=== PATIENT | female | born 1980 | race Caucasian/White ===

== ENCOUNTER → 2016-05-18 | Day surgery (SDC) | payer MEDICARE, MEDICAID ==
[~2016-05-18] MED LIST: Buffered Lidocaine 1% SYR 3ML* 3 ML/SYR SYRINGE INTRADERM ONE; Buffered Lidocaine 1% SYR 3ML* 3 ML/SYR SYRINGE ONE; Bupivacaine 0.5% SDV PF* 30 ML VIAL ONE; HYDROcodone/ACETAMIN 5-325 MG* 1 TAB ONE; Lidocaine 1% INJ* 10 MG/ML 30 ML SDV ONE; Metoclopramide IV* 5 MG/ML 2 ML VIAL IV PRN; Metoclopramide IV* 5 MG/ML 2 ML VIAL ONE; Midazolam* 1 MG/ML 2 ML VIAL (2 MG) ONE; Ondansetron INJ* 2 MG/ML VIAL ONE; Propofol* 10 MG/ML 20 ML BTL IV PUSH ONE; Scopolamine 1.5 mg* PATCH ONE; Scopolamine 1.5 mg* PATCH TRANSDERM PRN; ceFAZolin 2 GM PREMIX (*) 2 GM/50 ML BAG IVPB ONE; fentaNYL* 50 MCG/ML 2 ML VIAL (100 MCG VIAL) ONE
[2016-05-18 11:14] LABS: Manual Entry Verification AS; UR Preg Internal Control QC Line Present; UR Preg Kit Lot# 6060104
[2016-05-18 20:35] VITALS: BP 112/73
--- NOTE | 2016-05-19 02:55 | OP ---
DATE OF OPERATION: 05/18/16 - [facility] DATE OF : 78 SURGEON: Keith Snyder MD FORECLOSURE SPECIALIST: BRANT Solitario ANESTHESIOLOGIST: Marlin Galeano MD ANESTHESIA: Local MAC. 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 OPERATIVE PROCEDURE: Right thumb carpometacarpal joint arthrodesis. INDICATIONS: Suzette is a 35-year-old female. She has hypermobility and she has been clinically diagnosed with Amaya-Danlos syndrome. She came in to the office with snapping in her right thumb when she makes a fist. Upon further evaluation, she was noted to have instability of the carpometacarpal joint and volar subluxation every time she makes a fist which when she extends the thumb and the joint reduces, there is a significant uncomfortable snapping sensation that has gone along with this. She has had other ligamentous reconstructions in the feet in the past. She is used to having difficulties due to hyperlaxity with her joints. We talked to her treatment options. Ultimately, given the lack of normal integrity of the ligament, we talked about doing an arthrodesis. We talked about risks and benefits including the risk of nonunion and adjacent joint disease. She elected to proceed with surgery. DESCRIPTION OF PROCEDURE: Suzette was seen in the preoperative holding area and the correct side and site were marked. We came back to the operating room where she got some Versed and then I injected the operative site with 30 cc of 0.5% Marcaine without epinephrine. We then prepped and draped in the usual fashion and formal time-out was performed. I went ahead and made a standard longitudinal incision from the base of the thumb metacarpal down towards the radial styloid. Dissection was carried down to the subcutaneous tissue and the dorsal sensory radial nerve branch was identified and retracted dorsally. The radial artery was identified and mobilized and retracted proximally. Once I was down to clean, shiny, while capsule, I went ahead and made a longitudinal incision and raised capsular flaps off the joint volarly and dorsally all the way around the volar margin and dorsal margin. I then went ahead and marked up my osteotomy sites and went ahead and used the sagittal saw to complete my osteotomies taking off the most proximal part of the metacarpal base and the distal trapezium. I then ahead and reduced my osteotomy. I thought I had just a bit too much abduction, so I went ahead and altered my trapezial cut just a little bit with a sagittal saw. I then re-reduced the osteotomy and was pleased with this. I went ahead and pinned the joint with two crossing 0.028 K-wires. At this point, I brought in one 1.5 mm Synthes screw and traversed the joint and did this in lag-screw fashion to get good compression at the osteotomy site. By necessity, I had to go into the adjacent joints to get good bite and compression with the screw. Once I had nice compression, I went ahead and brought in little 1.5 mm Synthes locking plate. It was little T-plate. I put the two holes on the trapezium and then the longitudinal part of the plate upon the metacarpal base. The two unicortical 1.5 mm locking screws were placed in the trapezium. I then went ahead and placed three 1.5 mm cortical screws in the base of the thumb metacarpal. There was nice compression in the osteotomy site. I went ahead and removed the lag screw and the crossing K-wires. I took the little bit of autogenous cancellous graft off of the osteotomies in the subchondral bone. I went ahead and packed where in the areas I could at the fusion site. I checked final fluoroscopic imaging one more time and was very pleased with everything. So, I went ahead and closed the capsules with some 3-0 Polysorb suture. I then went ahead and irrigated the wound and closed the skin with some 4-0 nylon mattress sutures. The wounds were then dressed with Xeroform, 4x4s, sterile dressings, and a thumb spica splint was placed. She was then woken back up and taken to the recovery room in stable condition. [id number]/[facility] #: [id number] NOHEMI
== END | disposition home or self-care (01) ==
LOC: OR 10:25
PROVIDERS: ATTEND Orthopaedic Surgery Hand Surgery
DX: M25.341 Other instability, right hand (principal); Q79.6 Ehlers-Danlos syndromes; G47.33 Obstructive sleep apnea (adult) (pediatric)
CPT/HCPCS: 81025; A9270-GY; C1713; C1776; J0690; J2250; J2405; J2704; J2765; J3010

== ENCOUNTER 2016-08-20 13:00 | Emergency (ER) | payer MEDICARE, MEDICAID ==
[2016-08-20] MEDS ORDERED: Ketorolac INJ* 60 MG/2 ML VIAL IM ONE (16:25)
--- NOTE | 2016-08-20 16:36 | ED ---
Neck Pain - HPI Summary HPI Summary: Patient is a 36yo F with a hx of amaya danlos syndrome arrives to the ED with chronic neck and pain and spasms not well controlled with her regimine of pain medication Oxycontin and Tizandine. She states she was tossed her head back to brush her hair this morning and has had uncontrolled pain ever since. Pain begins in the midline spine region and radiates down the right posterior humerus ending at the elbow. This has happened before, and she states she normally needs to have something stronger prescribed to her. She is having an occipital nerve block appt on Monday and is followed closely with the pain clinic and neuro. She denies other pain or symptoms. Denies N/V/C/D. She denies flank pain or urinary sxs. She takes daily pain medicine and muscle relaxers. She is currently wearing a soft collar and states this has improved her sxs in the past, especially while sleeping. - History of Current Complaint Chief Complaint: EDNeckComplaint Stated Complaint: NECK SPASMS Time Seen by Provider: 08/20/16 15:40 Hx Obtained From: Patient Hx Last Menstrual Period: 07/09/15 Onset/Duration Of Injury/Symptoms: Minutes Mechanism Of Injury: No Known Trauma Timing: Constant Onset/Duration: Sudden Onset Severity Initially: Moderate Severity Currently: Moderate Pain Intensity: 8 Pain Scale Used: 0-10 Numeric Location: Discrete At: - midline spine tenderness, Radiates To: - right arm Aggravating Factors: Position, Movement Alleviating Factors: Nothing Associated Signs & Symptoms: Positive: Negative Related History: Previous Neck Injury - chronic neck pain from ehlos danlos - Risk Factors Meningitis Risk Factors: Negative Risk Factors For Cervical Spine Injury: Posterior Midline Cervical Spine Tenderness - Allergies/Home Medications Allergies/Adverse Reactions: Allergies Allergy/AdvReac Type Severity Reaction Status Date / Time Ciprofloxacin [From Cipro] Allergy Intermediate Joint Pain Verified 08/20/16 13: 07 Clindamycin Allergy Intermediate Rash Verified 08/20/16 13:07 Penicillins Allergy Intermediate Rash Verified 08/20/16 13:07 Sulfa Antibiotics Allergy Intermediate Rash Verified 08/20/16 13:07 Sulfamethoxazole Allergy Intermediate Rash Verified 08/20/16 13:07 w/Trimethoprim [From Bactrim] PMH/Surg Hx/FS Hx/Imm Hx Previously Healthy: Yes Endocrine/Hematology History: Reports: Hx Thyroid Disease - HYPO Denies: Hx Anticoagulant Therapy, Hx Diabetes, Hx Systemic Lupus Erythematosus Cardiovascular History: Denies: Hx Congestive Heart Failure, Hx Deep Vein Thrombosis, Hx Hypertension , Hx Myocardial Infarction, Hx Pacemaker/ICD Respiratory History: Reports: Hx Asthma - USES INHALER, Hx Sleep Apnea Denies: Hx Chronic Obstructive Pulmonary Disease (COPD), Hx Lung Cancer GI History: Reports: Hx Gall Bladder Disease - cholecystectomy, Hx Gastroesophageal Reflux Disease - CONTROL WITH MEDS, Hx Irritable Bowel, Other GI Disorders - Celiac Denies: Hx Gastrointestinal Bleed, Hx Ulcer, Hx Urosepsis History: Denies: Hx Dialysis, Hx Kidney Stones, Hx Renal Disease Musculoskeletal History: Reports: Hx Arthritis, Other Musculoskeletal History - "neck problems" Denies: Hx Rheumatoid Arthritis, Hx Osteoporosis Sensory History: Reports: Hx Contacts or Glasses - GLASSES Denies: Hx Hearing Aid Opthamlomology History: Reports: Hx Contacts or Glasses - GLASSES Neurological History: Reports: Hx Migraine - 2 X PER MONTH Denies: Hx Dementia, Hx Seizures, Hx Transient Ischemic Attacks (TIA) Psychiatric History: Reports: Hx Anxiety - meds, Hx Depression - meds Denies: Hx Panic Disorder, Hx Schizophrenia, Hx Bipolar Disorder - Cancer History Hx Chemotherapy: No - Surgical History Surgery Procedure, Year, and Place: 1995 ABDOMINAL LAPAROSCOPY, [place]. 2004 LEFT ANKLE RECONSTRUCTIVE SURGERY, [facility]. 2006 RIGHT KNEE CARTLIAGE REPAIR, [place]. 05/2013 LAPAROSCOPIC CHOLECYSTECTOMY, [facility] [place]. 07/2013 RIGHT ANKLE SURGERY WITH ALLOGRAFT RECONSTRUCTION OF ANKLE LIGAMENT, [facility] [place] Hx Anesthesia Reactions: No - Immunization History Date of Tetanus Vaccine: Unknown Infectious Disease History: No Infectious Disease History: Denies: Hx Clostridium Difficile, Hx Hepatitis, Hx Human Immunodeficiency Virus (HIV), Hx of Known/Suspected MRSA, Hx Shingles, Hx Tuberculosis, Hx Known/ Suspected VRE, Hx Known/Suspected VRSA, History Other Infectious Disease, Traveled Outside the [place] in Last 30 Days - Family History Known Family History: Positive: None, Unknown - Social History Occupation: Employed Full-time Lives: With Family Alcohol Use: Rare Alcohol Amount: 1-2 DRINKS/MONTH Hx Substance Use: No Substance Use Type: Reports: None Substance Use Comment - Amount & Last Used: prn pain meds Hx Tobacco Use: No Smoking Status (MU): Never Smoked Tobacco Do You Chew or Dip Tobacco: No Have You Smoked in the Last Year: No Review of Systems Constitutional: Negative Eyes: Negative Cardiovascular: Negative Respiratory: Negative Positive: no symptoms reported, see HPI Positive: Myalgia - right posterior shoulder pain and midline cervical tenderness Skin: Negative Neurological: Negative All Other Systems Reviewed And Are Negative: Yes Physical Exam Triage Information Reviewed: Yes Vital Signs On Initial Exam: Initial Vitals Temp Pulse Resp BP Pulse Ox 97.9 F 69 16 101/56 99 08/20/16 13:07 08/20/16 13:07 08/20/16 13:07 08/20/16 13:07 08/20/16 13:07 Vital Signs Reviewed: Yes Appearance: Positive: Well-Appearing, No Pain Distress, Well-Nourished Skin: Positive: Warm, Skin Color Reflects Adequate Perfusion Head/Face: Positive: Normal Head/Face Inspection Eyes: Positive: Normal, CABRERA, Conjunctiva Clear Neck: Positive: Tenderness @ - right posterior tenderness over right shoulder radiating to posterior humerus Respiratory/Lung Sounds: Positive: Clear to Auscultation, Breath Sounds Present Cardiovascular: Positive: Normal, RRR Musculoskeletal: Positive: Limited @ - neck flexion and extension d/t pain,, Other - ROM limited d/t pain Neurological: Positive: Normal, Sensory/Motor Intact, Reflexes Intact, Normal Gait, Speech Normal, Other - tingling in posterior humerus on right arm Psychiatric: Positive: Normal AVPU Assessment: Alert - [place] Coma Scale Best Eye Response: 4 - Spontaneous Best Motor Response: 6 - Obeys Commands Best Verbal Response: 5 - Oriented Diagnostics - Vital Signs Vital Signs Temp Pulse Resp BP Pulse Ox 08/20/16 14:24 97.4 F 69 16 100/65 100 08/20/16 13:09 97.9 F 90 16 101/56 99 08/20/16 13:07 97.9 F 69 16 101/56 99 - Laboratory Lab Statement: Any lab studies that have been ordered have been reviewed, and results considered in the medical decision making process. Neck Course/Dx - Course Course Of Treatment: Patient with amaya danlos c/o chronic neck pain worse since this morning after a jolted movement and not well controlled with her at home oxycontin and tazanidine. She requests stronger medications. Provider discussed toradol, prednisone, lidocaine patch and valium. Patient agrees, however pharmacy called and stated toradol and licoaine patches were not covered by her insurance. Provider encouraged icy hot patch as an alternative and she agrees to purchase the toradol either way. 5 day supply given d/t restrictions. patient is to follow up for her occipital nerve block on monday as scheduled. ROM limited d/t pain and manipulation deferred at this time d/t pain and chronic issues from Amaya Danlos. - Diagnoses Differential Dx/HQI/PQRI: Positive: Cervical Fracture, Dystonia, Sprain, Torticollis Provider Diagnoses: Muscle strain Discharge - Discharge Plan Condition: Stable Disposition: HOME Prescriptions: Diazepam TAB(*) [Valium TAB(*)] 10 mg PO Q8H PRN #12 tab MDD 3 PRN Reason: Pain Ketorolac TAB (NF) [Toradol TAB (NF)] 10 mg PO Q6H PRN #20 tab MDD 4 PRN Reason: Pain Lidocaine PATCH 5%* [Lidoderm 5% Patch*] 1 patch TRANSDERM DAILY #5 patch predniSONE TAB* [Deltasone TAB*] 40 mg PO DAILY #10 tab MDD 2 Patient Education Materials: Muscle Spasm (ED) Referrals: Michelle Mark NP [Primary Care Provider] - Additional Instructions: Continue with the medications as prescribed: Prednisone in the morning for 5 days Toradol every 6 hours Valium every 8 hours as needed Lidocaine patch applied to the area Continue with your follow up with appts, and call Monday for your appt on Monday. Wear soft collar as tolerated and for comfort. Heating pads to the area when lidocaine patch it NOT applied will also help with comfort.
[2016-08-20 16:44] VITALS: BP 106/54
== END 2016-08-20 16:44 | disposition home or self-care (01) ==
LOC: ED 13:00
DX: S16.1XXA Strain of muscle, fascia and tendon at neck level, initial encounter (principal); Q79.6 Ehlers-Danlos syndromes; X50.9XXA Other and unspecified overexertion or strenuous movements or postures, initial encounter; Y92.9 Unspecified place or not applicable; E03.9 Hypothyroidism, unspecified; Z88.0 Allergy status to penicillin; Z88.2 Allergy status to sulfonamides; J45.909 Unspecified asthma, uncomplicated; K21.9 Gastro-esophageal reflux disease without esophagitis
CPT/HCPCS: 96372; 99282; J1885

== ENCOUNTER 2017-01-23 12:40 | Emergency (ER) | payer MEDICARE, MEDICAID ==
[2017-01-23] MEDS ORDERED: Aspirin Low Dose CHEW TAB* 81 MG PO ONE (15:23)
[2017-01-23 15:52] LABS: Hematocrit 39 % (35-47); Hemoglobin 13.3 g/dl (12.0-16.0); Mean Corpuscular HGB Conc 35 g/dl (31-36); Mean Corpuscular Hemoglobin 32 pg (27-31); Mean Corpuscular Volume 93 fL (80-97); Mean Platelet Volume 7 um3 (7.4-10.4); Red Blood Count 4.13 10^6/ul (4.0-5.4); Red Cell Distribution Width 13 % (10.5-15); White Blood Count 7.5 10^3/ul (3.5-10.8)
--- NOTE | 2017-01-23 15:57 | RAD ---
Indication: Chest pain. 2 views of the chest including dual energy PA views demonstrate no mediastinal shift. Heart is of normal size and configuration. Lung downey demonstrate no pleural fluid, pneumonia or pneumothorax. IMPRESSION: No active cardiopulmonary disease is noted.
[2017-01-23 16:08] LABS: ALT 27 U/L (7-52); AST 32 U/L (13-39); Albumin 4.1 g/dL (3.2-5.2); Alkaline Phosphatase 40 U/L (34-104); Anion Gap 8 mmol/L (2-11); BUN/Creatinine Ratio 9.5 (8-20); Blood Urea Nitrogen 9 mg/dL (6-24); CO2 Carbon Dioxide 25 mmol/L (22-32); Calcium 9.5 mg/dL (8.6-10.3); Chloride 105 mmol/L (101-111); EGFR African American 85.1 (>60); EGFR Non-African American 66.2 (>60); Globulin 3.1 g/dL (2-4); Glucose 92 mg/dL (70-100); Potassium 3.4 mmol/L (3.5-5.0); Sodium 138 mmol/L (133-145); Total Protein 7.2 g/dL (6.4-8.9)
[2017-01-23 16:18] VITALS: BP 119/73
[2017-01-23] MEDS ORDERED: Potassium Chlor TAB* 20 MEQ TAB.ER PO ONE (16:38)
[2017-01-23 16:48] LABS: Lipase < 10 U/L (11.0-82.0)
[2017-01-23] MEDS ORDERED: Sucralfate TAB* 1 GM PO ONE (17:31)
--- NOTE | 2017-01-23 17:45 | ED ---
Curtis Whitney Benjamin, scribed for Srinivasa Schwartz MD on 01/23/17 at 1532 . HPI Chest Pain - HPI Summary HPI Summary: 36yo female c/o epigastric and low chest pain for 2 weeks when she lie down at night. Pt has hx of elhers danlos syndrome. Pt also reports nausea and diaphoresis but denies any SOB or syncope. Pain is not worsen with exertion. PSHx of cholecystectomy. She states she had an echo two years ago that was normal, and that she has no family history of structural heart disease, valvular heart disease. No family history of premature from cardiac issues. - History of Current Complaint Chief Complaint: EDChestPainROMI Time Seen by Provider: 01/23/17 14:53 Hx Obtained From: Patient Hx Last Menstrual Period: 07/09/15 Onset/Duration: Started Weeks Ago - 2 weeks, Still Present Timing: Intermittent Initial Severity: Moderate Current Severity: Moderate Pain Intensity: 9 Pain Scale Used: 0-10 Numeric Chest Pain Location: Lower Sternal Chest Pain Radiates: Yes Chest Pain Radiates To:: Epigastric Character: Pressure/Squeezing, Tightness Aggravating Factor(s): Nothing Alleviating Factor(s): Nothing Associated Signs and Symptoms: Positive: Diaphoresis, Nausea. Negative: Shortness of Breath, Syncope - Allergy/Home Medications Allergies/Adverse Reactions: Allergies Allergy/AdvReac Type Severity Reaction Status Date / Time Ciprofloxacin [From Cipro] Allergy Intermediate Joint Pain Verified 11/22/16 14: 42 Clindamycin Allergy Intermediate Rash Verified 11/22/16 14:42 Penicillins Allergy Intermediate Rash Verified 11/22/16 14:42 Sulfa Antibiotics Allergy Intermediate Rash Verified 11/22/16 14:42 Sulfamethoxazole Allergy Intermediate Rash Verified 11/22/16 14:42 w/Trimethoprim [From Bactrim] PMH/Surg Hx/FS Hx/Imm Hx Endocrine/Hematology History: Reports: Hx Thyroid Disease - HYPO Denies: Hx Anticoagulant Therapy, Hx Diabetes, Hx Systemic Lupus Erythematosus Cardiovascular History: Denies: Hx Congestive Heart Failure, Hx Deep Vein Thrombosis, Hx Hypertension , Hx Myocardial Infarction, Hx Pacemaker/ICD Respiratory History: Reports: Hx Asthma - USES INHALER, Hx Sleep Apnea Denies: Hx Chronic Obstructive Pulmonary Disease (COPD), Hx Lung Cancer GI History: Reports: Hx Gall Bladder Disease - cholecystectomy, Hx Gastroesophageal Reflux Disease - CONTROL WITH MEDS, Hx Irritable Bowel, Other GI Disorders - Celiac Denies: Hx Gastrointestinal Bleed, Hx Ulcer, Hx Urosepsis History: Denies: Hx Dialysis, Hx Kidney Stones, Hx Renal Disease Musculoskeletal History: Reports: Hx Arthritis, Other Musculoskeletal History - "neck problems" Denies: Hx Rheumatoid Arthritis, Hx Osteoporosis Sensory History: Reports: Hx Contacts or Glasses - GLASSES Denies: Hx Hearing Aid Opthamlomology History: Reports: Hx Contacts or Glasses - GLASSES Neurological History: Reports: Hx Migraine - 2 X PER MONTH Denies: Hx Dementia, Hx Seizures, Hx Transient Ischemic Attacks (TIA) Psychiatric History: Reports: Hx Anxiety - meds, Hx Depression - meds Denies: Hx Panic Disorder, Hx Schizophrenia, Hx Bipolar Disorder - Cancer History Hx Chemotherapy: No - Surgical History Surgery Procedure, Year, and Place: 1995 ABDOMINAL LAPAROSCOPY, [place]. 2004 LEFT ANKLE RECONSTRUCTIVE SURGERY, [facility]. 2006 RIGHT KNEE CARTLIAGE REPAIR, [place]. 05/2013 [place] [facility] [place]. [place]KLE SURG[place] WITH ALLOGRAFT REC[place]CTION [place] [facility] [place]B - FUSED - 2016- PLATE & SCREWS Hx Anesthesia Reactions: No - Immunization History Date of Tetanus Vaccine: Unknown Infectious Disease History: No Infectious Disease History: Denies: Hx Clostridium Difficile, Hx Hepatitis, Hx Human Immunodeficiency Virus (HIV), Hx of Known/Suspected MRSA, Hx Shingles, Hx Tuberculosis, Hx Known/ Suspected VRE, Hx Known/Suspected VRSA, History Other Infectious Disease, Traveled Outside the in Last 30 Days - Family History Known Family History: Positive: Other - breast CA - Social History Occupation: Disabled Lives: Dormitory/Roommates Alcohol Use: None Alcohol Amount: 1-2 DRINKS/MONTH Hx Substance Use: No Substance Use Type: Reports: None Substance Use Comment - Amount & Last Used: prn pain meds Hx Tobacco Use: No Smoking Status (MU): Never Smoked Tobacco Have You Smoked in the Last Year: No Review of Systems Positive: Skin Diaphoresis Eyes: Negative ENT: Negative Positive: Chest Pain - low CP Respiratory: Negative Negative: Shortness Of Breath Positive: Abdominal Pain - epigastric pain, Nausea. Negative: Vomiting, Diarrhea Genitourinary: Negative Musculoskeletal: Negative Skin: Negative Neurological: Negative Psychological: Normal All Other Systems Reviewed And Are Negative: Yes Physical Exam Triage Information Reviewed: Yes Vital Signs On Initial Exam: Initial Vitals Temp Pulse Resp BP Pulse Ox 98.8 F 79 16 136/81 98 01/23/17 13:06 01/23/17 13:06 01/23/17 13:06 01/23/17 13:06 01/23/17 13:06 Appearance: Positive: Well-Appearing Skin: Positive: Warm, Dry Head/Face: Positive: Normal Head/Face Inspection Eyes: Positive: EOMI ENT: Positive: Normal ENT inspection Neck: Positive: Supple, Nontender Respiratory/Lung Sounds: Positive: Clear to Auscultation, Breath Sounds Present Cardiovascular: Positive: RRR. Negative: Murmur Abdomen Description: Positive: Other: - some epigastric tenderness Musculoskeletal: Positive: Strength/ROM Intact Neurological: Positive: Sensory/Motor Intact, Alert, Oriented to Person Place, Time, CN Intact II-III Psychiatric: Positive: Normal - Chris Coma Scale Best Eye Response: 4 - Spontaneous Best Motor Response: 6 - Obeys Commands Best Verbal Response: 5 - Oriented Diagnostics - Vital Signs Vital Signs Temp Pulse Resp BP Pulse Ox 01/23/17 13:06 98.8 F 79 16 136/81 98 - Laboratory Lab Results: Lab Results 01/23/17 Range/Units 15:39 WBC 7.5 (3.5-10.8) 10^3/ul RBC 4.13 (4.0-5.4) 10^6/ul Hgb 13.3 (12.0-16.0) g/dl Hct 39 (35-47) % MCV 93 (80-97) fL MCH 32 H (27-31) pg MCHC 35 (31-36) g/dl RDW 13 (10.5-15) % Plt Count 288 (150-450) 10^3/ul MPV 7 L (7.4-10.4) um3 Neut % (Auto) 50.8 (38-83) % Lymph % (Auto) 41.3 (25-47) % [place] % (Auto) 5.8 (1-9) % Eos % (Auto) 1.5 (0-6) % Baso % (Auto) 0.6 (0-2) % Absolute Neuts (auto) 3.8 (1.5-7.7) 10^3/ul Absolute Lymphs (auto) 3.1 (1.0-4.8) 10^3/ul Absolute Monos (auto) 0.4 (0-0.8) 10^3/ul Absolute Eos (auto) 0.1 (0-0.6) 10^3/ul Absolute Basos (auto) 0 (0-0.2) 10^3/ul Absolute Nucleated RBC 0 10^3/ul Nucleated RBC % 0 Result Diagrams: 01/23/17 15:39 01/23/17 15:39 Lab Statement: Any lab studies that have been ordered have been reviewed, and results considered in the medical decision making process. - Radiology CXR Xray Interpretation: No Acute Changes Radiology Interpretation Completed By: Radiologist - ED Physician reviewed the radiology report and agrees with the finding. - EKG 1701. Cardiac Rate: NL - 63bpm EKG Rhythm: Sinus Rhythm ST Segment: Normal Ectopy: None EKG Interpretation: NO STEMI Chest Pain Course/Dx - Course Course Of Treatment: Reviewed pt's list of medication and allergies. Blood pressure noted. THe patient has had two weeks of symptoms worse with laying down. She has negative cardiac enzymes, and I dont' feel inclined to repeat them or the EKG given the fact she has had two weeks of symptoms. She has neg D dimer. She has no gallbladder. Dr Sarmiento contacted and discussed the patient and they will follow up the patient tomorrow. Out patient stress test. DW I will add carafate to the regimen, and she is already on protonix. Thought that this is reflux. - Diagnoses Provider Diagnoses: Acid reflux, Chest pain Discharge - Discharge Plan Condition: Good Disposition: HOME Prescriptions: Sucralfate TAB* [Carafate*] 1 gm PO BID #20 tab Patient Education Materials: Gastroesophageal Reflux Disease (ED), Noncardiac Chest Pain (ED) Referrals: Michelle Mark PROCUREMENT REPRESENTATIVE [Primary Care Provider] - 1 Day The documentation as recorded by the Curtis garzon Benjamin accurately reflects the service I personally performed and the decisions made by me, Srinivasa Schwartz MD.
== END 2017-01-23 17:58 | disposition home or self-care (01) ==
LOC: ED 12:40
DX: K21.9 Gastro-esophageal reflux disease without esophagitis (principal); R07.9 Chest pain, unspecified; R11.0 Nausea
CPT/HCPCS: 36415; 71020; 80053; 83605; 83690; 84484; 84702; 85025; 85379; 85610; 93005; 99282; A9270-GY

== ENCOUNTER 2017-08-29 20:37 | Emergency (ER) | payer MEDICARE, MEDICAID ==
[2017-08-30 00:06] LABS: ABS Basophils 0.1 10^3/ul (0-0.2); ABS Eosinophils 0.1 10^3/ul (0-0.6); ABS Monocytes 0.5 10^3/ul (0-0.8); ABS Neutrophils 3.4 10^3/ul (1.5-7.7); ABS Nucleated RBC 0 10^3/ul; Eosinophil % 1.4 % (0-6); Hematocrit 38 % (35-47); Hemoglobin 13.3 g/dl (12.0-16.0); Lymphocyte % 48.5 % (25-47); Mean Corpuscular HGB Conc 35 g/dl (31-36); Mean Corpuscular Hemoglobin 32 pg (27-31); Mean Corpuscular Volume 93 fL (80-97); Mean Platelet Volume 6.9 um3 (7.4-10.4); Nucleated Red Blood Cells % 0.1; Platelet Count 276 10^3/ul (150-450); Red Blood Count 4.12 10^6/ul (4.0-5.4); Red Cell Distribution Width 13 % (10.5-15); White Blood Count 8.1 10^3/ul (3.5-10.8)
[2017-08-30] MEDS ORDERED: NS 0.9% 1000 ML* 1,000 ML IV ONE (00:14)
[2017-08-30] MEDS ORDERED: Morphine VIAL* 4 MG/ML VIAL (1 ml vial) IV ONE (00:15)
[2017-08-30] MEDS ORDERED: Metoclopramide IV* 5 MG/ML 2 ML VIAL IV SLOW PU ONE (00:17)
[2017-08-30] MEDS ORDERED: Ketorolac INJ* 30 MG/ML 1 ML VIAL IV PUSH ONE (00:18)
[2017-08-30 00:24] LABS: EGFR Non-African American 58.7 (>60)
[2017-08-30 01:22] LABS: Urine Appearance Clear; Urine Blood Negative (Negative); Urine Color Yellow; Urine Ketones 1+ (Negative); Urine Protein Negative (Negative); Urine Specific Gravity 1.029 (1.010-1.030); Urine Urobilinogen Negative (Negative)
--- NOTE | 2017-08-30 03:14 | ED ---
Deisi Whitney Thomas, scribed for Kelvin Kerr MD on 08/30/17 at 0011 . Abdominal Pain/Female - HPI Summary HPI Summary: The patient is a 37 year old female complaining of left-sided abdominal pain that began a few hours ago. The pain is intermittent and is described as sharp. The pain is aggravated with exhalation but not inhalation. The patient additionally complains of nausea, dysuria, diarrhea (5x today, which is normal for her), fever (100.3 this AM). Her last BM was today at 16:00. Past medical history includes connective disuse disorder. - History of Current Complaint Chief Complaint: EDAbdPain Stated Complaint: ABD PAIN Time Seen by Provider: 08/29/17 23:56 Hx Obtained From: Patient Hx Last Menstrual Period: 07/09/15 Onset/Duration: Still Present Timing: Intermittent Episode Lasting Severity Currently: Moderate Pain Intensity: 7 Pain Scale Used: 0-10 Numeric Location: Other - Left sided Character: Sharp Aggravating Factor(s): Other: - Exhalation Alleviating Factor(s): Nothing Associated Signs and Symptoms: Positive: Fever, Nausea, Diarrhea, Other: - Dysuria Allergies/Adverse Reactions: Allergies Allergy/AdvReac Type Severity Reaction Status Date / Time clindamycin Allergy Rash Verified 08/21/17 10:50 Penicillins Allergy Rash Verified 08/21/17 10:50 Sulfa (Sulfonamide Allergy Rash Verified 08/21/17 10:50 Antibiotics) sulfamethoxazole Allergy Rash Verified 08/21/17 10:50 [From Bactrim] trimethoprim [From Bactrim] Allergy Rash Verified 08/21/17 10:50 ciprofloxacin [From Cipro] AdvReac Joint Pain Verified 08/21/17 10:50 PMH/Surg Hx/FS Hx/Imm Hx Endocrine/Hematology History: Reports: Hx Thyroid Disease - HYPO Denies: Hx Anticoagulant Therapy, Hx Diabetes, Hx Systemic Lupus Erythematosus Cardiovascular History: Denies: Hx Congestive Heart Failure, Hx Deep Vein Thrombosis, Hx Hypertension , Hx Myocardial Infarction, Hx Pacemaker/ICD Respiratory History: Reports: Hx Asthma - USES INHALER, Hx Sleep Apnea Denies: Hx Chronic Obstructive Pulmonary Disease (COPD), Hx Lung Cancer GI History: Reports: Hx Gall Bladder Disease - cholecystectomy, Hx Gastroesophageal Reflux Disease - CONTROL WITH MEDS, Hx Irritable Bowel, Other GI Disorders - Celiac Denies: Hx Gastrointestinal Bleed, Hx Ulcer, Hx Urosepsis History: Denies: Hx Dialysis, Hx Kidney Stones, Hx Renal Disease Musculoskeletal History: Reports: Hx Arthritis, Other Musculoskeletal History - "neck problems" Denies: Hx Rheumatoid Arthritis, Hx Osteoporosis Sensory History: Reports: Hx Contacts or Glasses - GLASSES Denies: Hx Hearing Aid Opthamlomology History: Reports: Hx Contacts or Glasses - GLASSES Neurological History: Reports: Hx Migraine - 2 X PER MONTH Denies: Hx Dementia, Hx Seizures, Hx Transient Ischemic Attacks (TIA) Psychiatric History: Reports: Hx Anxiety - meds, Hx Depression - meds Denies: Hx Panic Disorder, Hx Schizophrenia, Hx Bipolar Disorder - Cancer History Hx Chemotherapy: No - Surgical History Surgery Procedure, Year, and Place: 1995 ABDOMINAL LAPAROSCOPY, [place]. 2004 LEFT ANKLE RECONSTRUCTIVE SURGERY, [facility]. 2006 RIGHT KNEE CARTLIAGE REPAIR, [place]. 05/2013 LAPAROSCOPIC CHOLECYSTECTOMY, [facility] [place]. 07/2013 RIGHT ANKLE SURGERY WITH ALLOGRAFT RECONSTRUCTION OF ANKLE LIGAMENT, [facility] [place]. RT THUMB - FUSED - 2016- PLATE & SCREWS Hx Anesthesia Reactions: No - Immunization History Date of Tetanus Vaccine: Unknown Infectious Disease History: No Infectious Disease History: Denies: Hx Clostridium Difficile, Hx Hepatitis, Hx Human Immunodeficiency Virus (HIV), Hx of Known/Suspected MRSA, Hx Shingles, Hx Tuberculosis, Hx Known/ Suspected VRE, Hx Known/Suspected VRSA, History Other Infectious Disease, Traveled Outside the in Last 30 Days - Family History Known Family History: Positive: Other - breast CA - Social History Alcohol Use: Rare Alcohol Amount: 2 drinks per week Hx Substance Use: No Substance Use Type: Reports: None Substance Use Comment - Amount & Last Used: prn pain meds Hx Tobacco Use: No Smoking Status (MU): Never Smoked Tobacco Have You Smoked in the Last Year: No Review of Systems Positive: Fever Positive: Abdominal Pain, Diarrhea, Nausea Positive: dysuria All Other Systems Reviewed And Are Negative: Yes Physical Exam - Summary Physical Exam Summary: VITAL SIGNS: Reviewed. GENERAL: Patient is a well-developed and nourished female who is lying comfortable in the stretcher. Patient is not in any acute respiratory distress. HEAD AND FACE: No signs of trauma. No ecchymosis, hematomas or skull depressions. No sinus tenderness. EYES: PERRLA, EOMI x 2, No injected conjunctiva, no nystagmus. EARS: Hearing grossly intact. Ear canals and tympanic membranes are within normal limits. MOUTH: Oropharynx within normal limits. NECK: Supple, trachea is midline, no adenopathy, no JVD, no carotid bruit, no c- spine tenderness, neck with full ROM. CHEST: Symmetric, no tenderness at palpation LUNGS: Clear to auscultation bilaterally. No wheezing or crackles. CVS: Regular rate and rhythm, S1 and S2 present, no murmurs or gallops appreciated. ABDOMEN: Soft. He has diffuse tenderness. No signs of distention. No rebound no guarding, and no masses palpated. Bowel sounds are hyperactive bowel sounds. BACK: There is not any CVA tenderness. EXTREMITIES: FROM in all major joints, no edema, no cyanosis or clubbing. NEURO: Alert and oriented x 3. No acute neurological deficits. Speech is normal and follows commands. SKIN: Dry and warm Triage Information Reviewed: Yes Vital Signs On Initial Exam: Initial Vitals Temp Pulse Resp BP Pulse Ox 99 F 77 20 123/80 99 08/29/17 20:58 08/29/17 20:58 08/29/17 20:58 08/29/17 20:58 08/29/17 20:58 Vital Signs Reviewed: Yes Diagnostics - Vital Signs Vital Signs Temp Pulse Resp BP Pulse Ox 08/29/17 22:43 99.3 F 69 20 109/69 100 08/29/17 20:58 99 F 77 20 123/80 99 - Laboratory Lab Results: Lab Results 08/29/17 Range/Units 23:56 WBC 8.1 (3.5-10.8) 10^3/ul RBC 4.12 (4.0-5.4) 10^6/ul Hgb 13.3 (12.0-16.0) g/dl Hct 38 (35-47) % MCV 93 (80-97) fL MCH 32 H (27-31) pg MCHC 35 (31-36) g/dl RDW 13 (10.5-15) % Plt Count 276 (150-450) 10^3/ul MPV 6.9 L (7.4-10.4) um3 Neut % (Auto) 42.2 (38-83) % Lymph % (Auto) 48.5 H (25-47) % Rankin % (Auto) 6.5 (0-7) % Eos % (Auto) 1.4 (0-6) % Baso % (Auto) 1.4 (0-2) % Absolute Neuts (auto) 3.4 (1.5-7.7) 10^3/ul Absolute Lymphs (auto) 4.0 (1.0-4.8) 10^3/ul Absolute Monos (auto) 0.5 (0-0.8) 10^3/ul Absolute Eos (auto) 0.1 (0-0.6) 10^3/ul Absolute Basos (auto) 0.1 (0-0.2) 10^3/ul Absolute Nucleated RBC 0 10^3/ul Nucleated RBC % 0.1 Result Diagrams: 08/29/17 23:56 08/29/17 23:56 Lab Statement: Any lab studies that have been ordered have been reviewed, and results considered in the medical decision making process. - CT CT Abdomen/Pelvis CT Interpretation: Positive (See Comments) - Impression: "Ill-defined right adnexal hypodensity measuring approximately 3.6 cm, probably ovarian, not appreciated on prior exam from 06/15/13. Trace physiologic free fluid cul-de-sac versus artifact. Arcuate uterus. Dr. Kerr has reviewed this report. CT Interpretation Completed By: Radiologist Re-Evaluation - Re-Evaluation First Eval Re-Evaluation Time: 03:08 Change: Improved Comment: The patient feels better. Abdominal Pain Fem Course/Dx - Course Course Of Treatment: The patient is a 37 year old female complaining of left- sided abdominal pain, nausea, dysuria, diarrhea, and fever. In the ED course, the patient was given Toradol, Reglan, morphine, and IV fluids. Bloodwork was obtained. CT Abdomen/Pelvis shows ill-defined right adnexal hypodensity measuring approximately 3.6 cm, probably ovarian, not appreciated on prior exam from 06/15/13. Trace physiologic free fluid cul-de-sac versus artifact. Arcuate uterus. The patient will be discharged home to follow up with obstetrics. - Diagnoses Provider Diagnoses: Abdominal pain, Ovarian cyst Discharge - Sign-Out/Discharge Documenting (check all that apply): Discharge/Admit/Transfer - Discharge Plan Condition: Stable Disposition: HOME Patient Education Materials: Ovarian Cyst (ED), Abdominal Pain (ED) Referrals: Doug Benoit MD [Medical Doctor] - 3 Days Michelle Mark NP [Primary Care Provider] - If Needed Additional Instructions: Follow up with your OB in three days. I have given you a referral to Dr. Benoit , OB, if you do not have one. Return to the emergency department for new or worsening symptoms. The documentation as recorded by the Deisi garzon Thomas accurately reflects the service I personally performed and the decisions made by me, Kelvin Kerr MD.
[2017-08-30 03:34] VITALS: BP 114/67
--- NOTE | 2017-08-30 08:18 | RAD ---
INDICATION: LEFT upper abdominal pain, nausea, fever. Previous cholecystectomy. COMPARISON: June 15, 2013 TECHNIQUE: Multidetector CT images were obtained from the lung bases to the ischial tuberosities. Evaluation of the viscera is limited without IV contrast. Multiplanar reformation. REPORT: Unremarkable visualized inferior thorax. Post cholecystectomy. Negative for biliary dilatation. No conspicuous focal hepatic lesions. Unremarkable unenhanced pancreas and spleen. Negative for CT abnormality of the upper GI, small bowel, appendix visualized along the posterior RIGHT pelvic sidewall, or colon. Physiologic trace volume of free pelvic fluid. Negative for free air or hernias. Normal adrenal glands. Unremarkable unenhanced kidneys, ureters, and largely decompressed urinary bladder. Multiple pelvic phleboliths. Unremarkable anteverted uterus. Mild prominence of the RIGHT ovary relative to the LEFT ovary increased over the prior exam. Negative for lymphadenopathy. Normal diameter abdominal aorta and iliac arteries. Physiologic distention of the IVC. Negative for suspicious focal osseous lesions. IMPRESSION: 1. Normal appendix documented. No pathologic process of the unopacified alimentary tract evident. 2. Post cholecystectomy. 3. Negative for urolithiasis or obstructive uropathy. 4. Mild asymmetric prominence of the RIGHT ovary. Correlate with clinical assessment and consider ultrasound for further evaluation if deemed appropriate.
== END 2017-08-30 03:33 | disposition home or self-care (01) ==
LOC: ED 20:37
DX: R10.9 Unspecified abdominal pain (principal); N83.202 Unspecified ovarian cyst, left side; J45.909 Unspecified asthma, uncomplicated; E03.9 Hypothyroidism, unspecified; K21.9 Gastro-esophageal reflux disease without esophagitis; Z88.2 Allergy status to sulfonamides; Z88.0 Allergy status to penicillin; Z88.8 Allergy status to other drugs, medicaments and biological substances
CPT/HCPCS: 36415; 74176; 80053; 81003; 83605; 83690; 84702; 85025; 86140; 96374; 96375; 99284; J1885; J2270; J2765

== ENCOUNTER 2017-09-04 16:19 | Emergency (ER) | payer MEDICARE, MEDICAID ==
--- NOTE | 2017-09-04 17:18 | UC ---
Shoulder Pain HPI - HPI Summary HPI Summary: 37 y/o female presents to the urgent care c/o right shoulder pain or possible injuy on 09/01/17 after raising her arm above her head at home. - History of Current Complaint Chief Complaint: UCUpperExtremity Stated Complaint: SHOULDER INJURY Time Seen by Provider: 09/04/17 17:15 Hx Obtained From: Patient Hx Last Menstrual Period: August 14, 2017 Pain Intensity: 5 - Allergies/Home Medications Allergies/Adverse Reactions: Allergies Allergy/AdvReac Type Severity Reaction Status Date / Time clindamycin Allergy Rash Verified 09/04/17 16:51 Penicillins Allergy Rash Verified 08/21/17 10:50 Sulfa (Sulfonamide Allergy Rash Verified 09/04/17 16:51 Antibiotics) sulfamethoxazole Allergy Rash Verified 09/04/17 16:51 [From Bactrim] trimethoprim [From Bactrim] Allergy Rash Verified 09/04/17 16:51 ciprofloxacin [From Cipro] AdvReac Joint Pain Verified 09/04/17 16:51 PMH/Surg Hx/FS Hx/Imm Hx Previously Healthy: Yes Endocrine History: Hypothyroidism Other Endocrine History: Ehler, danlos syndrome Respiratory History: Asthma Other Neurological History: herniated discn in the neck and lower back, Thoracic outle syndrome Other History Of: Negative For: HIV, Hepatitis B, Hepatitis C, Anticoagulant Therapy - Surgical History Surgical History: None Surgery Procedure, Year, and Place: 1995 ABDOMINAL LAPAROSCOPY, [place]. 2004 LEFT ANKLE RECONSTRUCTIVE SURGERY, [facility]. 2006 RIGHT KNEE CARTLIAGE REPAIR, [place]. 05/2013 LAPAROSCOPIC CHOLECYSTECTOMY, [facility] [place]. 07/2013 RIGHT ANKLE SURGERY WITH ALLOGRAFT RECONSTRUCTION OF ANKLE LIGAMENT, [facility] [place]. RT THUMB - FUSED - 2016- PLATE & SCREWS - Family History Known Family History: Positive: Cardiac Disease, Hypertension, Diabetes - Social History Occupation: Employed Full-time Lives: With Family Alcohol Use: Occasionally Alcohol Amount: 2 drinks per week Substance Use Type: Prescribed Substance Use Comment - Amount & Last Used: prn pain meds Smoking Status (MU): Never Smoked Tobacco Have You Smoked in the Last Year: No - Immunization History Most Recent Influenza Vaccination: never Most Recent Tetanus Shot: unknown Most Recent Pneumonia Vaccination: 2004 Review of Systems Constitutional: Negative Skin: Negative Eyes: Negative ENT: Negative Respiratory: Negative Cardiovascular: Negative Gastrointestinal: Negative Genitourinary: Negative Motor: Negative Neurovascular: Negative Musculoskeletal: Decreased ROM - RT shoulder, Other: - RT shoulder pain s/p injury Neurological: Numbness - RT arm Psychological: Negative Is Patient Immunocompromised?: No All Other Systems Reviewed And Are Negative: Yes Physical Exam - Summary Physical Exam Summary: Vital Signs Reviewed: Yes General: well developed, well nourished mael sitting in the examining table w/o any apparent distress, Eyes: Positive: Conjunctiva Clear - PERRLA, EOMI, fundi grossly normal ENT: Positive: Normal ENT inspection, Hearing grossly normal, Pharynx normal, TMs normal Neck: Positive: Supple, Nontender, No Lymphadenopathy Respiratory: Positive: Chest non-tender, Lungs clear, Normal breath sounds, No respiratory distress Cardiovascular: Positive: RRR, No Murmur, Pulses Normal, Brisk Capillary Refill Abdomen Description: Positive: Nontender, No Organomegaly, Soft. Negative: CVA Tenderness (R), CVA Tenderness (L) Bowel Sounds: Positive: Present Musculoskeletal: Positive: Strength Intact, Other: - RT shoulder: The L shoulder is without obvious asymmetry or deformity when compared to the R shoulder. No surface trauma, ecchymosis, crepitus. No bony deformity or prominence of humeral head. No erythema, warmth. tender to palpation over the clavicle,scapula. and over Acromioclavicular joint and humeral head with mild swelling, NT to palpation of the bicipital groove . NT to palpation of the muscles of the sternocleidomastoid, pectoralis, tenderness over biceps/triceps, deltoid, trapezius, . Limited ROM due to pain. "empty can and drop arm test unable to perform due to pain. No axillary tenderness or lymphadenopathy. Normal sensation over the deltoid and fingers. Distal motor and neurovascular status is intact. Neurological Exam: Normal Psychological Exam: Normal Skin Exam: Normal Triage Information Reviewed: Yes Vital Signs: Initial Vital Signs Temp 97.8 F 09/04/17 16:47 Pulse 75 09/04/17 16:47 Resp 12 09/04/17 16:47 BP 137/81 09/04/17 16:47 Pulse Ox 100 09/04/17 16:47 Shoulder Course/Dx - Differential Dx/Diagnosis Differential Diagnosis/HQI/PQRI: Abrasion, Dislocation, Rotator Cuff Injury, Sprain, Strain, Thoracic Outlet Syndrome Provider Diagnoses: 1- RT shoulder pain s/p injury Discharge - Discharge Plan Referrals: Michelle Mark NP [Primary Care Provider] -
--- NOTE | 2017-09-04 18:48 | RAD ---
INDICATION: Acute onset right shoulder pain x3 days COMPARISON: None. TECHNIQUE: 4 views of the right shoulder were obtained. FINDINGS: The adequately corticated bones are in normal alignment. Joint spaces appear maintained. No fracture, dislocation or focal bony abnormality is seen. IMPRESSION: Normal radiograph of the right shoulder. If the patient's symptoms persist, follow-up imaging is recommended.
[2017-09-04 19:27] VITALS: BP 108/65
== END 2017-09-04 19:28 | disposition home or self-care (01) ==
LOC: UCEAST 16:19
DX: S49.91XA Unspecified injury of right shoulder and upper arm, initial encounter (principal); X50.9XXA Other and unspecified overexertion or strenuous movements or postures, initial encounter; Y93.9 Activity, unspecified; Y92.009 Unspecified place in unspecified non-institutional (private) residence as the place of occurrence of the external cause; E03.9 Hypothyroidism, unspecified; Q79.6 Ehlers-Danlos syndromes; J45.909 Unspecified asthma, uncomplicated; G54.0 Brachial plexus disorders; Z88.1 Allergy status to other antibiotic agents; Z88.0 Allergy status to penicillin; Z88.2 Allergy status to sulfonamides
CPT/HCPCS: 99212; G0463

== ENCOUNTER 2017-10-10 20:42 | Emergency (ER) | payer MEDICAID, MEDICARE ==
[2017-10-10 21:20] LABS: ABS Basophils 0 10^3/ul (0-0.2); ABS Eosinophils 0 10^3/ul (0-0.6); ABS Lymphocytes 0.9 10^3/ul (1.0-4.8); ABS Monocytes 0.2 10^3/ul (0-0.8); ABS Neutrophils 1.6 10^3/ul (1.5-7.7); ABS Nucleated RBC 0 10^3/ul; Eosinophil % 0.4 % (0-6); Hematocrit 38 % (35-47); Hemoglobin 13.3 g/dl (12.0-16.0); Lymphocyte % 33.5 % (25-47); Mean Corpuscular HGB Conc 35 g/dl (31-36); Mean Corpuscular Hemoglobin 32 pg (27-31); Mean Corpuscular Volume 93 fL (80-97); Mean Platelet Volume 7.1 um3 (7.4-10.4); Nucleated Red Blood Cells % 0.1; Platelet Count 196 10^3/ul (150-450); Red Blood Count 4.14 10^6/ul (4.00-5.40); Red Cell Distribution Width 13 % (10.5-15); White Blood Count 2.8 10^3/ul (3.5-10.8)
[2017-10-10 21:37] LABS: EGFR Non-African American 60.6 (>60)
[2017-10-10] MEDS ORDERED: Ondansetron ODT TAB* 4 MG PO ONE (21:59)
[2017-10-10] MEDS ORDERED: NS 0.9% 1000 ML* 1,000 ML IV ONE (21:59)
[2017-10-10] MEDS ORDERED: Morphine VIAL* 4 MG/ML VIAL (1 ml vial) IV ONE (22:02)
[2017-10-10 22:21] LABS: Urine Appearance Clear; Urine Blood 2+ (Negative); Urine Color Yellow; Urine Ketones Negative (Negative); Urine Protein Negative (Negative); Urine Red Blood Cell Absent (Absent); Urine Specific Gravity 1.006 (1.010-1.030); Urine Urobilinogen Negative (Negative); Urine White Blood Cell Trace(0-5/hpf) (Absent)
[2017-10-10] MEDS ORDERED: Iohexol 300* (CONTRAST) 10 ML SDV IV ONE (22:36)
--- NOTE | 2017-10-11 00:19 | ED ---
GI/ HPI - HPI Summary HPI Summary: 37-year-old female presents with right upper quadrant pain since Monday night. She states the pain radiates to her right flank and into her epigastric region. She denies any chest pain or shortness of breath. States when she does a deep breath makes it worse. She is previously had her gallbladder removed states the pain feels similar. She admits to fevers and chills. She has not been able to keep anything down. She denies any diarrhea constipation. She denies any pain with urination. She denies any pelvic pain or abnormal vaginal discharge. She has history of connective tissue disorders. She denies any recent tick exposure but she lives in the [facility] [place]. - History of Current Complaint Chief Complaint: EDAbdPain Time Seen by Provider: 10/10/17 21:54 Stated Complaint: ABD PAIN Hx Last Menstrual Period: August 14, 2017 Pain Intensity: 7 - Allergy/Home Medications Allergies/Adverse Reactions: Allergies Allergy/AdvReac Type Severity Reaction Status Date / Time clindamycin Allergy Rash Verified 10/10/17 20:53 Penicillins Allergy Rash Verified 10/10/17 20:53 Sulfa (Sulfonamide Allergy Rash Verified 10/10/17 20:53 Antibiotics) sulfamethoxazole Allergy Rash Verified 10/10/17 20:53 [From Bactrim] trimethoprim [From Bactrim] Allergy Rash Verified 10/10/17 20:53 ciprofloxacin [From Cipro] AdvReac Joint Pain Verified 10/10/17 20:53 PMH/Surg Hx/FS Hx/Imm Hx Endocrine/Hematology History: Reports: Hx Thyroid Disease - HYPO Denies: Hx Anticoagulant Therapy, Hx Diabetes, Hx Systemic Lupus Erythematosus Cardiovascular History: Denies: Hx Congestive Heart Failure, Hx Deep Vein Thrombosis, Hx Hypertension , Hx Myocardial Infarction, Hx Pacemaker/ICD Respiratory History: Reports: Hx Asthma - USES INHALER, Hx Sleep Apnea Denies: Hx Chronic Obstructive Pulmonary Disease (COPD), Hx Lung Cancer GI History: Reports: Hx Gall Bladder Disease - cholecystectomy, Hx Gastroesophageal Reflux Disease - CONTROL WITH MEDS, Hx Irritable Bowel, Other GI Disorders - Celiac Denies: Hx Gastrointestinal Bleed, Hx Ulcer, Hx Urosepsis History: Denies: Hx Dialysis, Hx Kidney Stones, Hx Renal Disease Musculoskeletal History: Reports: Hx Arthritis, Other Musculoskeletal History - "neck problems" Denies: Hx Rheumatoid Arthritis, Hx Osteoporosis Sensory History: Reports: Hx Contacts or Glasses - GLASSES Denies: Hx Hearing Aid Opthamlomology History: Reports: Hx Contacts or Glasses - GLASSES Neurological History: Reports: Hx Migraine - 2 X PER MONTH Denies: Hx Dementia, Hx Seizures, Hx Transient Ischemic Attacks (TIA) Psychiatric History: Reports: Hx Anxiety - meds, Hx Depression - meds Denies: Hx Panic Disorder, Hx Schizophrenia, Hx Bipolar Disorder - Cancer History Hx Chemotherapy: No - Surgical History Surgery Procedure, Year, and Place: 1995 ABDOMINAL LAPAROSCOPY, [place]. 2004 LEFT ANKLE RECONSTRUCTIVE SURGERY, [place]. 2006 RIGHT KNEE CARTLIAGE REPAIR, [place]. 05/2013 LAPAROSCOPIC CHOLECYSTECTOMY, [facility] [place] 07/2013 RIGHT ANKLE SURGERY WITH ALLOGRAFT RECONSTRUCTION OF ANKLE LIGAMENT[place] [facility] [place] RT THUMB - FUSED - 2016- PLATE & SCREWS Hx Anesthesia Reactions: No - Immunization History Date of Tetanus Vaccine: Unknown Infectious Disease History: No Infectious Disease History: Denies: Hx Clostridium Difficile, Hx Hepatitis, Hx Human Immunodeficiency Virus (HIV), Hx of Known/Suspected MRSA, Hx Shingles, Hx Tuberculosis, Hx Known/ Suspected VRE, Hx Known/Suspected VRSA, History Other Infectious Disease, Traveled Outside the in Last 30 Days - Family History Known Family History: Positive: None, Unknown, Cardiac Disease, Hypertension, Diabetes, Other - breast CA - Social History Alcohol Use: Rare Alcohol Amount: 2 drinks per week Hx Substance Use: No Substance Use Type: Reports: None Substance Use Comment - Amount & Last Used: prn pain meds Hx Tobacco Use: No Smoking Status (MU): Never Smoked Tobacco Have You Smoked in the Last Year: No Review of Systems Positive: Fever, Chills Negative: Chest Pain Negative: Shortness Of Breath Positive: Abdominal Pain, Vomiting, Nausea. Negative: Diarrhea All Other Systems Reviewed And Are Negative: Yes Physical Exam Triage Information Reviewed: Yes Vital Signs On Initial Exam: Initial Vitals Temp Pulse Resp BP Pulse Ox 99.3 F 95 16 132/80 97 10/10/17 20:49 10/10/17 20:49 10/10/17 20:49 10/10/17 20:49 10/10/17 20:49 Vital Signs Reviewed: Yes Appearance: Positive: Pain Distress Skin: Positive: Warm, Dry Head/Face: Positive: Normal Head/Face Inspection Eyes: Positive: Normal, Conjunctiva Clear ENT: Positive: Pharynx normal Respiratory/Lung Sounds: Positive: Clear to Auscultation, Breath Sounds Present Cardiovascular: Positive: Normal, RRR Abdomen Description: Positive: Soft, CVA Tenderness (R), Other: - tenderness RUQ Bowel Sounds: Positive: Present Musculoskeletal: Positive: Normal Neurological: Positive: Normal Psychiatric: Positive: Normal Diagnostics - Vital Signs Vital Signs Temp Pulse Resp BP Pulse Ox 10/10/17 23:00 88 98 10/10/17 22:28 76 107/68 99 10/10/17 22:14 16 10/10/17 22:00 82 98 10/10/17 21:59 83 99 10/10/17 21:57 84 139/81 100 10/10/17 20:49 99.3 F 95 16 132/80 97 - Laboratory Lab Results: Lab Results 10/10/17 10/10/17 10/10/17 Range/Units 21:13 21:13 21:50 WBC 2.8 L (3.5-10.8) 10^3/ul RBC 4.14 (4.00-5.40) 10^6/ul Hgb 13.3 (12.0-16.0) g/dl Hct 38 (35-47) % MCV 93 (80-97) fL MCH 32 H (27-31) pg MCHC 35 (31-36) g/dl RDW 13 (10.5-15) % Plt Count 196 (150-450) 10^3/ul MPV 7.1 L (7.4-10.4) um3 Neut % (Auto) 56.2 (38-83) % Lymph % (Auto) 33.5 (25-47) % [place] % (Auto) 8.8 H (0-7) % Eos % (Auto) 0.4 (0-6) % Baso % (Auto) 1.1 (0-2) % Absolute Neuts (auto) 1.6 (1.5-7.7) 10^3/ul Absolute Lymphs (auto) 0.9 L (1.0-4.8) 10^3/ul Absolute Monos (auto) 0.2 (0-0.8) 10^3/ul Absolute Eos (auto) 0 (0-0.6) 10^3/ul Absolute Basos (auto) 0 (0-0.2) 10^3/ul Absolute Nucleated RBC 0 10^3/ul Nucleated RBC % 0.1 Sodium 134 L (139-145) mmol/L Potassium 4.1 (3.5-5.0) mmol/L Chloride 101 (101-111) mmol/L Carbon Dioxide 28 (22-32) mmol/L Anion Gap 5 (2-11) mmol/L BUN 9 (6-24) mg/dL Creatinine 1.02 H (0.51-0.95) mg/dL Est GFR ( Amer) 78.0 (>60) Est GFR (Non-Af Amer) 60.6 (>60) BUN/Creatinine Ratio 8.8 (8-20) Glucose 84 (70-100) mg/dL Calcium 8.9 (8.6-10.3) mg/dL Total Bilirubin 0.50 (0.2-1.0) mg/dL AST 99 H (13-39) U/L ALT 115 H (7-52) U/L Alkaline Phosphatase 149 H (34-104) U/L C-Reactive Protein 55.15 H (< 5.00) mg/L Total Protein 7.1 (6.4-8.9) g/dL Albumin 4.2 (3.2-5.2) g/dL Globulin 2.9 (2-4) g/dL Albumin/Globulin Ratio 1.4 (1-3) Lipase < 10 L (11.0-82.0) U/L Beta HCG, Quant < 0.60 mIU/mL Urine Color Yellow Urine Appearance Clear Urine pH 7.0 (5-9) Ur Specific [place] 1.006 L (1.010-1.030) Urine Protein Negative (Negative) Urine Ketones Negative (Negative) Urine Blood 2+ A (Negative) Urine Nitrate Negative (Negative) Urine Bilirubin Negative (Negative) Urine Urobilinogen Negative (Negative) Ur Leukocyte Esterase Negative (Negative) Urine WBC (Auto) Trace(0-5/hpf) (Absent) Urine RBC (Auto) Absent (Absent) Ur Squamous Epith Cells Present A (Absent) Urine Bacteria Absent (Absent) Urine Glucose Negative (Negative) Result Diagrams: 10/10/17 21:13 10/10/17 21:13 Lab Statement: Any lab studies that have been ordered have been reviewed, and results considered in the medical decision making process. - CT abd CT Interpretation: Positive (See Comments) - nonspecific heterogeneous changes within liver could be hepatitis vs fatty liver CT Interpretation Completed By: Radiologist TOBY Course/Dx - Course Course Of Treatment: 37-year-old female presents with right upper quadrant pain since Monday night. She states the pain radiates to her right flank and into her epigastric region. She denies any chest pain or shortness of breath. States when she does a deep breath makes it worse. She is previously had her gallbladder removed states the pain feels similar. She admits to fevers and chills. She has not been able to keep anything down. She denies any diarrhea constipation. She denies any pain with urination. She denies any pelvic pain or abnormal vaginal discharge. She has history of connective tissue disorders. She denies any recent tick exposure but she lives in the [facility] [place]. on exam has tenderness RUQ. labs wbc low at 2.8. lfts elevated. CT shows nonspecific changes to liver could be hepatitis vs fatty liver. discussed with dr bazzi could be viral vs ehrlichiosis with lft elevated and low wbc. will treat for such with doxycyline for 14 days will wait for lab results. patient understand and agrees with plan. - Diagnoses Differential Diagnoses - Female: Gastritis, Hepatitis, Other - choledoliathasis Provider Diagnoses: Abdominal pain Discharge - Sign-Out/Discharge Documenting (check all that apply): Discharge/Admit/Transfer - Discharge Plan Condition: Good Disposition: HOME Prescriptions: DOXYcycline CAP(*) [DOXYcycline 100MG CAP(*)] 100 mg PO BID #27 cap Ondansetron ODT TAB* [Zofran 4 MG Odt TAB*] 4 mg PO Q6H PRN #16 tab.odt PRN Reason: Nausea Patient Education Materials: Abdominal Pain (ED) Referrals: Michelle Mark NP [Primary Care Provider] - Additional Instructions: Take doxycycline twice a day for 14 days for potential ehrlichosis infection Can take zofran every 6 hours for nausea Take normal pain medication Follow up with primary within 7 days Return to ED if develop any new or worsening symptoms - Billing Disposition and Condition Condition: GOOD Disposition: Home
[2017-10-11] MEDS ORDERED: DOXYcycline CAP(*) 100 MG PO ONE (00:37)
[2017-10-11 01:21] VITALS: BP 108/68
--- NOTE | 2017-10-11 07:50 | RAD ---
CLINICAL HISTORY: RUQ pain COMPARISON: August 30, 2017 TECHNIQUE: Multiple contiguous axial CT scans were obtained of the abdomen and pelvis after the administration of intravenous contrast. Coronal and sagittal multiplanar reformations are submitted for review. Oral contrast was administered. Delayed images were obtained through the abdomen. FINDINGS: LUNG BASES: The lung bases are clear. LIVER: There is mild periportal edema. BILE DUCTS: There is no intrahepatic or extrahepatic biliary dilatation. GALLBLADDER: The gallbladder is not visualized. Surgical clips are noted in the gallbladder fossa. PANCREAS: The pancreas is normal, without mass or ductal dilatation. SPLEEN: Normal in size and appearance. UPPER GI TRACT: Evaluation of the gastrointestinal tract is limited by incomplete gastric distention. The upper GI tract is unremarkable. SMALL BOWEL AND MESENTERY: The small bowel is normal in contour, course, and caliber. There is no obstruction or dilatation. COLON: The colon is normal in contour, course, caliber. There is no pericolonic inflammatory change. There is large amount of stool throughout the colon. There is a tubular, vermiform, hollow viscus that is blind ending, and originates from the cecum, consistent with a normal appendix. There is no periappendiceal inflammatory change. This is best seen on axial images 64 through 68. ADRENALS: Normal bilaterally. KIDNEYS: The kidneys are normal in shape, size, contour, and axis. There is no hydronephrosis or nephrolithiasis. BLADDER: The bladder is smooth in contour. PELVIC ORGANS: The uterus and adnexa are grossly normal for technique. There is a small amount of fluid within the pelvic cul-de-sac. This may be physiologic within a reproductive age female. AORTA: The aorta is normal. IVC: Unremarkable LYMPH NODES: There is no lymphadenopathy by size criteria. ABDOMINAL WALL: There is no evidence for abdominal wall hernia. BONES AND SOFT TISSUES: Unremarkable OTHER: None IMPRESSION: 1. STATUS POST CHOLECYSTECTOMY. 2. MILD PERIPORTAL EDEMA. 3. LARGE AMOUNT OF STOOL WITHIN THE COLON. 4. SMALL AMOUNT OF FREE FLUID WITHIN THE PELVIC CUL-DE-SAC. THIS MAY BE PHYSIOLOGIC WITHIN A REPRODUCTIVE AGE FEMALE.
== END 2017-10-11 01:18 | disposition home or self-care (01) ==
LOC: ED 20:42
DX: R10.11 Right upper quadrant pain (principal); K21.9 Gastro-esophageal reflux disease without esophagitis; K90.0 Celiac disease; F41.9 Anxiety disorder, unspecified; F32.9 Major depressive disorder, single episode, unspecified
CPT/HCPCS: 36415; 74177; 80053; 81003; 81015; 83690; 84702; 85025; 86140; 86709; 86803; 87086; 87340; 87798; 96360; 96374; 96375; 99283; A9270-GY; J2270; Q9967

== ENCOUNTER 2018-01-08 11:50 | Emergency (ER) | payer MEDICARE ==
[2018-01-08 12:25] LABS: Urine Appearance Cloudy; Urine Blood Negative (Negative); Urine Color Yellow; Urine Ketones Negative (Negative); Urine Protein Negative (Negative); Urine Specific Gravity 1.008 (1.010-1.030); Urine Urobilinogen Negative (Negative)
[2018-01-08 13:40] LABS: ABS Basophils 0.1 10^3/ul (0-0.2); ABS Eosinophils 0.1 10^3/ul (0-0.6); ABS Lymphocytes 2.2 10^3/ul (1.0-4.8); ABS Monocytes 0.3 10^3/ul (0-0.8); ABS Neutrophils 3.3 10^3/ul (1.5-7.7); ABS Nucleated RBC 0 10^3/ul; Eosinophil % 1.7 % (0-6); Hematocrit 37 % (35-47); Hemoglobin 12.7 g/dl (12.0-16.0); Lymphocyte % 36.2 % (25-47); Mean Corpuscular HGB Conc 35 g/dl (31-36); Mean Corpuscular Hemoglobin 32 pg (27-31); Mean Corpuscular Volume 93 fL (80-97); Mean Platelet Volume 7.2 um3 (7.4-10.4); Nucleated Red Blood Cells % 0; Platelet Count 269 10^3/ul (150-450); Red Blood Count 3.97 10^6/ul (4.00-5.40); Red Cell Distribution Width 13 % (10.5-15)
[2018-01-08 13:55] LABS: EGFR Non-African American 64.3 (>60)
--- NOTE | 2018-01-08 14:07 | ED ---
Abdominal Pain/Female - HPI Summary HPI Summary: Pt is a 37 y/o female who presents to the ED c/o abdominal pain for 3 days. She states the pain started in her upper abdomen, then moved to her belly button, and now is in her lower abdomen. Pain radiates to her right lower back. The pain is intermittent and worsening, and is currently rated 7/10 in severity. Movement makes the pain worse. Pt also c/o nausea, diarrhea, and decreased appetite. She denies any vomiting, hematochezia, vaginal bleeding, SOB, or dysuria, vaginal discharge. PSHx laparoscopy for ovarian cysts, and cholecystectomy. She had a liver problem due to Lyme disease 2 months ago. - History of Current Complaint Chief Complaint: EDAbdPain Stated Complaint: ABD PAIN Time Seen by Provider: 01/08/18 13:34 Hx Obtained From: Patient Hx Last Menstrual Period: August 14, 2017 Onset/Duration: Lasting Days - 3, Worse Since Timing: Intermittent Episode Lasting Severity Currently: Moderate Pain Intensity: 7 Pain Scale Used: 0-10 Numeric Location: Diffuse, Discrete At: RUQ, Umbilical Radiates: Yes Radiates to: Flank - Right Aggravating Factor(s): Movement Alleviating Factor(s): Nothing Associated Signs and Symptoms: Positive: Decreased Appetite, Nausea, Diarrhea. Negative: Blood in Stool, Vaginal Discharge, Vomiting Allergies/Adverse Reactions: Allergies Allergy/AdvReac Type Severity Reaction Status Date / Time clindamycin Allergy Rash Verified 01/08/18 13:08 metoclopramide [From Reglan] Allergy See Comment Verified 01/08/18 13:08 Penicillins Allergy Rash Verified 01/08/18 13:08 Sulfa (Sulfonamide Allergy Rash Verified 01/08/18 13:08 Antibiotics) sulfamethoxazole Allergy Rash Verified 01/08/18 13:08 [From Bactrim] trimethoprim [From Bactrim] Allergy Rash Verified 01/08/18 13:08 ciprofloxacin [From Cipro] AdvReac Joint Pain Verified 01/08/18 13:08 PMH/Surg Hx/FS Hx/Imm Hx Endocrine/Hematology History: Reports: Hx Thyroid Disease - HYPO Denies: Hx Anticoagulant Therapy, Hx Diabetes, Hx Systemic Lupus Erythematosus Cardiovascular History: Denies: Hx Congestive Heart Failure, Hx Deep Vein Thrombosis, Hx Hypertension , Hx Myocardial Infarction, Hx Pacemaker/ICD Respiratory History: Reports: Hx Asthma - USES INHALER, Hx Sleep Apnea Denies: Hx Chronic Obstructive Pulmonary Disease (COPD), Hx Lung Cancer GI History: Reports: Hx Gall Bladder Disease - cholecystectomy, Hx Gastroesophageal Reflux Disease - CONTROL WITH MEDS, Hx Irritable Bowel, Other GI Disorders - Celiac Denies: Hx Gastrointestinal Bleed, Hx Ulcer, Hx Urosepsis History: Denies: Hx Dialysis, Hx Kidney Stones, Hx Renal Disease Musculoskeletal History: Reports: Hx Arthritis, Other Musculoskeletal History - "neck problems" Denies: Hx Rheumatoid Arthritis, Hx Osteoporosis Sensory History: Reports: Hx Contacts or Glasses - GLASSES Denies: Hx Hearing Aid Opthamlomology History: Reports: Hx Contacts or Glasses - GLASSES Neurological History: Reports: Hx Migraine - 2 X PER MONTH, Other Neuro Impairments/Disorders - Lymes Disease Denies: Hx Dementia, Hx Seizures, Hx Transient Ischemic Attacks (TIA) Psychiatric History: Reports: Hx Anxiety - meds, Hx Depression - meds Denies: Hx Panic Disorder, Hx Schizophrenia, Hx Bipolar Disorder - Cancer History Hx Chemotherapy: No - Surgical History Surgery Procedure, Year, and Place: 1995 ABDOMINAL LAPAROSCOPY, [place]. 2004 LEFT ANKLE RECONSTRUCTIVE SURGERY, [facility]. 2006 RIGHT KNEE CARTLIAGE REPAIR, [place]. 05/2013 LAPAROSCOPIC CHOLECYSTECTOMY, [facility] [place]. 07/2013 RIGHT ANKLE SURGERY WITH ALLOGRAFT RECONSTRUCTION OF ANKLE LIGAMENT, [facility] [place]. RT THUMB - FUSED - 2016- PLATE & SCREWS Hx Anesthesia Reactions: No - Immunization History Date of Tetanus Vaccine: Unknown Infectious Disease History: No Infectious Disease History: Denies: Hx Clostridium Difficile, Hx Hepatitis, Hx Human Immunodeficiency Virus (HIV), Hx of Known/Suspected MRSA, Hx Shingles, Hx Tuberculosis, Hx Known/ Suspected VRE, Hx Known/Suspected VRSA, History Other Infectious Disease, Traveled Outside the in Last 30 Days - Family History Known Family History: Positive: Cardiac Disease, Hypertension, Diabetes, Other - breast CA - Social History Alcohol Use: Rare Alcohol Amount: 2 drinks per week Hx Substance Use: No Substance Use Type: Reports: None Substance Use Comment - Amount & Last Used: prn pain meds Hx Tobacco Use: No Smoking Status (MU): Never Smoked Tobacco Have You Smoked in the Last Year: No Review of Systems Negative: Shortness Of Breath Positive: Abdominal Pain, Diarrhea, Nausea, Other - decreased appetite, NEGATIVE : hematochezia. Negative: Vomiting Negative: dysuria, other - Vaginal bleeding All Other Systems Reviewed And Are Negative: Yes Physical Exam - Summary Physical Exam Summary: GENERAL: Patient is a well-developed and nourished F who is lying comfortable in the stretcher. Patient is not in any acute respiratory distress. HEAD AND FACE: Normocephalic EYES: PERRLA, EOMI x 2. EARS: Hearing grossly intact. MOUTH: Oropharynx within normal limits. NECK: Supple, trachea is midline, no adenopathy, no JVD, no carotid bruit. CHEST: Symmetric, no tenderness at palpation LUNGS: Clear to auscultation bilaterally. No wheezing or crackles. CVS: Regular rate and rhythm, S1 and S2 present, no murmurs or gallops appreciated. ABDOMEN: Soft. Bowel sounds are normal. No abdominal abnormal pulsations. Tenderness to right side of abdomen, mainly RUQ. EXTREMITIES: Full ROM in all major joints, no edema, no cyanosis or clubbing. NEURO: Alert and oriented x 3. No acute neurological deficits. Speech is normal and follows commands. SKIN: Dry and warm Triage Information Reviewed: Yes Vital Signs On Initial Exam: Initial Vitals Temp Pulse Resp BP Pulse Ox 99.0 F 76 18 153/75 100 01/08/18 12:03 01/08/18 12:03 01/08/18 12:03 01/08/18 12:03 01/08/18 12:03 Vital Signs Reviewed: Yes Diagnostics - Vital Signs Vital Signs Temp Pulse Resp BP Pulse Ox 01/08/18 12:03 99.0 F 76 18 153/75 100 - Laboratory Lab Results: Lab Results 01/08/18 01/08/18 01/08/18 Range/Units 12:14 13:22 13:22 WBC 6.0 (3.5-10.8) 10^3/ul RBC 3.97 L (4.00-5.40) 10^6/ul Hgb 12.7 (12.0-16.0) g/dl Hct 37 (35-47) % MCV 93 (80-97) fL MCH 32 H (27-31) pg MCHC 35 (31-36) g/dl RDW 13 (10.5-15) % Plt Count 269 (150-450) 10^3/ul MPV 7.2 L (7.4-10.4) um3 Neut % (Auto) 55.3 (38-83) % Lymph % (Auto) 36.2 (25-47) % [place] % (Auto) 5.7 (0-7) % Eos % (Auto) 1.7 (0-6) % Baso % (Auto) 1.1 (0-2) % Absolute Neuts (auto) 3.3 (1.5-7.7) 10^3/ul Absolute Lymphs (auto) 2.2 (1.0-4.8) 10^3/ul Absolute Monos (auto) 0.3 (0-0.8) 10^3/ul Absolute Eos (auto) 0.1 (0-0.6) 10^3/ul Absolute Basos (auto) 0.1 (0-0.2) 10^3/ul Absolute Nucleated RBC 0 10^3/ul Nucleated RBC % 0 Sodium 138 (135-145) mmol/L Potassium 3.8 (3.5-5.0) mmol/L Chloride 105 (101-111) mmol/L Carbon Dioxide 28 (22-32) mmol/L Anion Gap 5 (2-11) mmol/L BUN 11 (6-24) mg/dL Creatinine 0.97 H (0.51-0.95) mg/dL Est GFR ( Amer) 77.8 (>60) Est GFR (Non-Af Amer) 64.3 (>60) BUN/Creatinine Ratio 11.3 (8-20) Glucose 87 (70-100) mg/dL Lactic Acid (0.5-2.0) mmol/L Calcium 9.2 (8.6-10.3) mg/dL Total Bilirubin 0.40 (0.2-1.0) mg/dL AST 21 (13-39) U/L ALT 19 (7-52) U/L Alkaline Phosphatase 39 (34-104) U/L C-Reactive Protein < 1.00 (<8.01) mg/L Total Protein 7.2 (6.4-8.9) g/dL Albumin 4.3 (3.2-5.2) g/dL Globulin 2.9 (2-4) g/dL Albumin/Globulin Ratio 1.5 (1-3) Lipase < 10 L (11.0-82.0) U/L Urine Color Yellow Urine Appearance Cloudy Urine pH 8.0 (5-9) Ur Specific [place] 1.008 L (1.010-1.030) Urine Protein Negative (Negative) Urine Ketones Negative (Negative) Urine Blood Negative (Negative) Urine Nitrate Negative (Negative) Urine Bilirubin Negative (Negative) Urine Urobilinogen Negative (Negative) Ur Leukocyte Esterase Negative (Negative) Urine Glucose Negative (Negative) 01/08/18 Range/Units 13:22 WBC (3.5-10.8) 10^3/ul RBC (4.00-5.40) 10^6/ul Hgb (12.0-16.0) g/dl Hct (35-47) % MCV (80-97) fL MCH (27-31) pg MCHC (31-36) g/dl RDW (10.5-15) % Plt Count (150-450) 10^3/ul MPV (7.4-10.4) um3 Neut % (Auto) (38-83) % Lymph % (Auto) (25-47) % [place] % (Auto) (0-7) % Eos % (Auto) (0-6) % Baso % (Auto) (0-2) % Absolute Neuts (auto) (1.5-7.7) 10^3/ul Absolute Lymphs (auto) (1.0-4.8) 10^3/ul Absolute Monos (auto) (0-0.8) 10^3/ul Absolute Eos (auto) (0-0.6) 10^3/ul Absolute Basos (auto) (0-0.2) 10^3/ul Absolute Nucleated RBC 10^3/ul Nucleated RBC % Sodium (135-145) mmol/L Potassium (3.5-5.0) mmol/L Chloride (101-111) mmol/L Carbon Dioxide (22-32) mmol/L Anion Gap (2-11) mmol/L BUN (6-24) mg/dL Creatinine (0.51-0.95) mg/dL Est GFR ( Amer) (>60) Est GFR (Non-Af Amer) (>60) BUN/Creatinine Ratio (8-20) Glucose (70-100) mg/dL Lactic Acid 0.6 (0.5-2.0) mmol/L Calcium (8.6-10.3) mg/dL Total Bilirubin (0.2-1.0) mg/dL AST (13-39) U/L ALT (7-52) U/L Alkaline Phosphatase (34-104) U/L C-Reactive Protein (<8.01) mg/L Total Protein (6.4-8.9) g/dL Albumin (3.2-5.2) g/dL Globulin (2-4) g/dL Albumin/Globulin Ratio (1-3) Lipase (11.0-82.0) U/L Urine Color Urine Appearance Urine pH (5-9) Ur Specific [place] (1.010-1.030) Urine Protein (Negative) Urine Ketones (Negative) Urine Blood (Negative) Urine Nitrate (Negative) Urine Bilirubin (Negative) Urine Urobilinogen (Negative) Ur Leukocyte Esterase (Negative) Urine Glucose (Negative) Result Diagrams: 01/08/18 13:22 01/08/18 13:22 Lab Statement: Any lab studies that have been ordered have been reviewed, and results considered in the medical decision making process. - CT CT A/P CT Interpretation Completed By: Radiologist - Normal appendix. Fluid in the endometrium likely due to phase of patient's menstrual cycle. No obstructive uropathy is noted. Patient is status post cholecystectomy. ED physician reviewed radiology report. Abdominal Pain Fem Course/Dx - Course Course Of Treatment: Pt is a 37 y/o female who presents to the ED c/o abdominal pain for 3 days. She states the pain started in her upper abdomen, then moved to her belly button, and now is in her lower abdomen. Pain radiates to her right lower back. The pain is intermittent and worsening, and is currently rated 7/10 in severity. Movement makes the pain worse. Pt also c/o nausea, diarrhea, and decreased appetite. She denies any vomiting, hematochezia, vaginal bleeding, SOB, or dysuria. PSHx laparoscopy for ovarian cysts, and cholecystectomy. She had a liver problem due to Lyme disease 2 months ago. A physical exam revealed Tenderness to right side of abdomen, mainly RUQ. A CT A/ P revealed Normal appendix. Fluid in the endometrium likely due to phase of patient's menstrual cycle. No obstructive uropathy is noted. Patient is status post cholecystectomy. Final dx is abdominal pain. Pt will be discharged and is agreeable with this plan. - Diagnoses Provider Diagnoses: Abdominal pain Discharge - Sign-Out/Discharge Documenting (check all that apply): Patient Departure - Discharge - Discharge Plan Condition: Stable Disposition: HOME Patient Education Materials: Abdominal Pain (ED) Referrals: Michelle Mark NP [Primary Care Provider] - (1-3 days) Additional Instructions: RETURN TO THE EMERGENCY DEPARTMENT FOR CHANGING OR WORSENING SYMPTOMS. - Billing Disposition and Condition Condition: STABLE Disposition: Home - Attestation Statements Document Initiated by Scribe: Yes Documenting Scribe: Lucy Rodriguez Provider For Whom Manny is Documenting (Include Credential): Carmela Villeda MD Scribe Attestation: Lucy Whitney, scribed for Carmela Villeda MD on 01/09/18 at 1315. Scribe Documentation Reviewed: Yes Provider Attestation: The documentation as recorded by the scribLucy caputo accurately reflects the service I personally performed and the decisions made by , Carmela Villeda MD
[2018-01-08] MEDS ORDERED: NS 0.9% 1000 ML* 1,000 ML IV ONE (14:08)
[2018-01-08] MEDS ORDERED: Ketorolac INJ* 15 MG/ML 1 ML VIAL IV PUSH ONE (14:08)
[2018-01-08] MEDS ORDERED: Metoclopramide IV* 5 MG/ML 2 ML VIAL IV ONE (14:08)
[2018-01-08] MEDS ORDERED: Iohexol 300* (CONTRAST) 10 ML SDV IV ONE (16:19)
--- NOTE | 2018-01-08 17:17 | RAD ---
Indication: Right-sided abdominal pain. Contrast:. Administered 97.3 ml of OMNIPAQUE 300 mg/ml CT of the abdomen and pelvis was performed after oral and IV contrast administration. Coronal and sagittal reconstructed images were obtained. Lung bases demonstrate no pleural fluid, nodules or masses. Heart is of normal size without evidence of pericardial effusion. Liver is normal in size. There are no focal lesions or intrahepatic duct dilatation noted. The patient is status post cholecystectomy. The spleen is normal in size. Common duct is not dilated. The pancreas demonstrates no mass or pancreatic duct dilatation. No adrenal masses are noted. The kidneys demonstrate symmetric nephrograms without evidence of focal lesions. No dilated loops of bowel are noted. Aorta and inferior vena cava are unremarkable. No retroperitoneal adenopathy is noted. CT of the pelvis demonstrates contrast in the right colon. A structure resembling the appendix is noted in the right lower quadrant filled with contrast consistent with a normal appendix. No abnormal fluid collections are noted. The uterus demonstrates fluid in the endometrium which may be phase of the patient's menstrual cycle. Clinical correlation is noted. Follicles are noted in both ovaries. No dominant cystic lesions are noted. Urinary bladder is grossly unremarkable. The bony structures are grossly unremarkable. Pelvic ring is grossly intact. The bony structures are grossly unremarkable. IMPRESSION: Normal appendix. Fluid in the endometrium likely due to phase of patient's menstrual cycle. No obstructive uropathy is noted. Patient is status post cholecystectomy.
[2018-01-08 17:28] VITALS: BP 113/66
== END 2018-01-08 17:27 | disposition home or self-care (01) ==
LOC: ED 11:50
DX: R10.9 Unspecified abdominal pain (principal); R19.7 Diarrhea, unspecified; R11.0 Nausea
CPT/HCPCS: 36415; 74177; 80053; 81003; 83605; 83690; 84702; 85025; 86140; 96374; 96375; 99283; J1885; J2765; Q9967

== ENCOUNTER 2018-01-20 11:35 | Emergency (ER) | payer MEDICARE ==
[2018-01-20 14:07] VITALS: BP 108/69
--- NOTE | 2018-01-20 14:07 | UC ---
Lower Extremity/Ankle HPI - HPI Summary HPI Summary: 2 days ago hyperflexed left great toe---mid toe and mtp joint pain---no swelling or bruising - History of Current Complaint Chief Complaint: UCLowerExtremity Stated Complaint: TOE INJURY Time Seen by Provider: 01/20/18 13:59 Hx Obtained From: Patient Hx Last Menstrual Period: 12/30 ?: No Onset/Duration: Sudden Onset, Lasting Days - 2, Still Present, Other - walking on the side of her foot whick is causing pain in a chronic left ankle injury Severity Initially: Moderate Severity Currently: Moderate Pain Intensity: 6 Pain Scale Used: 0-10 Numeric Aggravating Factor(s): Standing, Ambulation Alleviating Factor(s): Rest, Elevation Able to Bear Weight: No - Allergies/Home Medications Allergies/Adverse Reactions: Allergies Allergy/AdvReac Type Severity Reaction Status Date / Time clindamycin Allergy Rash Verified 01/20/18 12:00 metoclopramide [From Reglan] Allergy See Comment Verified 01/20/18 12:00 Penicillins Allergy Rash Verified 01/20/18 12:00 Sulfa (Sulfonamide Allergy Rash Verified 01/20/18 12:00 Antibiotics) sulfamethoxazole Allergy Rash Verified 01/20/18 12:00 [From Bactrim] trimethoprim [From Bactrim] Allergy Rash Verified 01/20/18 12:00 ciprofloxacin [From Cipro] AdvReac Joint Pain Verified 01/20/18 12:00 PMH/Surg Hx/FS Hx/Imm Hx Previously Healthy: No - connective tissue disorder Endocrine History: Hypothyroidism Other History Of: Negative For: HIV, Hepatitis B, Hepatitis C, Anticoagulant Therapy - Surgical History Surgical History: Yes Surgery Procedure, Year, and Place: 1995 ABDOMINAL LAPAROSCOPY, [place]. 2004 LEFT ANKLE RECONSTRUCTIVE SURGERY, [facility]. 2006 RIGHT KNEE CARTLIAGE REPAIR, [place]. 05/2013 [place] [facility] [place] SURG[place] WITH [place]OGRAFT [place] [facility] [place] THUMB - FUSED - 2016- PLATE & SCREWS - Family History Known Family History: Positive: None, Unknown, Cardiac Disease, Hypertension, Diabetes, Other - breast CA - Social History Occupation: Disabled Lives: With Family Alcohol Use: Rare Alcohol Amount: 2 drinks per week Substance Use Type: None Substance Use Comment - Amount & Last Used: prn pain meds Smoking Status (MU): Never Smoked Tobacco Have You Smoked in the Last Year: No - Immunization History Most Recent Influenza Vaccination: never Most Recent Tetanus Shot: unknown Most Recent Pneumonia Vaccination: 2004 Review of Systems Constitutional: Negative Skin: Negative Eyes: Negative ENT: Negative Respiratory: Negative Cardiovascular: Negative Gastrointestinal: Negative Genitourinary: Negative Motor: Negative Neurovascular: Negative Musculoskeletal: Arthralgia - left great toe painj Neurological: Negative Psychological: Negative Is Patient Immunocompromised?: No All Other Systems Reviewed And Are Negative: Yes Physical Exam Triage Information Reviewed: Yes Appearance: Well-Appearing, No Pain Distress, Well-Nourished Vital Signs: Initial Vital Signs Temp 99.2 F 01/20/18 11:56 Pulse 70 01/20/18 11:56 Resp 18 01/20/18 11:56 BP 105/62 01/20/18 11:56 Pulse Ox 100 01/20/18 11:56 Vital Signs Reviewed: Yes Eye Exam: Normal Eyes: Positive: Conjunctiva Clear ENT Exam: Normal ENT: Positive: Normal ENT inspection, Hearing grossly normal. Negative: Trismus , Muffled voice, Hoarse voice Neck exam: Normal Neck: Positive: Supple, Nontender Respiratory Exam: Normal Respiratory: Positive: Chest non-tender, No respiratory distress, No accessory muscle use Cardiovascular Exam: Normal Cardiovascular: Positive: RRR, Pulses Normal, Brisk Capillary Refill Musculoskeletal Exam: Other Musculoskeletal: Positive: No Edema, Strength Limited @ - left great toe, ROM Limited @ - left great toe Neurological Exam: Normal Neurological: Positive: Alert, Muscle Tone Normal Psychological Exam: Normal Skin Exam: Normal Diagnostics - Radiology No standard instances Xray Interpretation: No Acute Changes Radiology Interpretation Completed By: ED Physician, Radiologist - Patient Name : ED CASANOVA Medical Record#: [id number] Ordering Physician: Nancy Hidalgo FOOT CASTER Acct.#: [id number] : 1980 Age: 37 Sex: F Location: [facility]RG[facility] Exam Date: 01/20/18 1405 ADM Status: REG ER Order Information: TOE LEFT GREAT Accession Number: [id number] CPT: 92809 INDICATION: Left great toe pain after hyperextension injury TECHNIQUE: 3 views of the left great toe were obtained. FINDINGS: The visualized bones are normal alignment. Joint spaces appear maintained. No fracture is seen. IMPRESSION: NO EVIDENCE FOR FRACTURE. IF THE PATIENT'S SYMPTOMS PERSIST RECOMMEND FOLLOW-UP IMAGING. <Electronically signed by Antonio Vergara MD in OV> 01/20/18 144 Dictated By: Antonio Vergara MD Dictated Date/Time : 01/20/18 144 Transcribed Date/Time: 01/20/18 1443 Copy to: CC:So Fournier MD; Nancy Hidalgo FOOT CASTER; Michelle Mark NP Imaging - [facility] Imaging - [facility] Imaging - [facility] [address] [place] [address] [address] [address] ph ([phone]) ph ([phone]) ph ([phone]) This report is only to be considered final once signed by the Provider(s) as displayed in the "<Electronically Signed by >" field (s). Absence of a signature indicates the report is in a draft status and still needs to be finalized. In the event this document was created by someone other than the signing Provider, the individual initiating the document will be listed in the "Entered by:" or "Dictated by:" downey. 1 of 1 Lower Extremity Course/Dx - Course Course Of Treatment: cam boot rest ice and elvation follow with ortho prn - Differential Dx/Diagnosis Provider Diagnoses: left toe contusion Discharge - Sign-Out/Discharge Documenting (check all that apply): Patient Departure All imaging exams completed and their final reports reviewed: Yes - Discharge Plan Condition: Stable Disposition: HOME Patient Education Materials: Foot Contusion (ED), R.I.C.E. Treatment (ED) Referrals: Denisha Beaver MD [Medical Doctor] - If Needed - Billing Disposition and Condition Condition: STABLE Disposition: Home
--- NOTE | 2018-01-20 14:48 | RAD ---
INDICATION: Left great toe pain after hyperextension injury TECHNIQUE: 3 views of the left great toe were obtained. FINDINGS: The visualized bones are normal alignment. Joint spaces appear maintained. No fracture is seen. IMPRESSION: NO EVIDENCE FOR FRACTURE. IF THE PATIENT'S SYMPTOMS PERSIST RECOMMEND FOLLOW-UP IMAGING.
== END 2018-01-20 15:09 | disposition home or self-care (01) ==
LOC: UCEAST 11:35
DX: S90.122A Contusion of left lesser toe(s) without damage to nail, initial encounter (principal); X58.XXXA Exposure to other specified factors, initial encounter; Y93.9 Activity, unspecified; Y92.9 Unspecified place or not applicable; Z88.1 Allergy status to other antibiotic agents; Z88.0 Allergy status to penicillin; Z88.8 Allergy status to other drugs, medicaments and biological substances
CPT/HCPCS: 99213; G0463

== ENCOUNTER 2018-01-31 19:05 | Emergency (ER) | payer MEDICARE ==
[2018-01-31] MEDS ORDERED: Metoclopramide IV* 5 MG/ML 2 ML VIAL IV SLOW PU ONE (20:27)
[2018-01-31] MEDS ORDERED: diPHENhydraMINE IV* 50 MG/ML 1 ml VIAL (BENADRYL) IV ONE (20:27)
[2018-01-31] MEDS ORDERED: NS 0.9% 1000 ML* 1,000 ML IV ONE (20:27)
[2018-01-31] MEDS ORDERED: Ketorolac INJ* 30 MG/ML 1 ML VIAL IV PUSH ONE (20:27)
--- NOTE | 2018-01-31 20:28 | ED ---
Headache - HPI Summary HPI Summary: This is scribe Presley Ashraf documenting for attending Dr. Kelvin Kerr MD. This patient is a 37 year old F presenting to [facility] with a chief complaint of migraine ALEXIS (behind eyes and on the left side of head) accompanied by upper back and neck pain since 01/28/18 at 08:00. The patient rates the pain 7/10 in severity. Patient reports photophobia. Patient denies vomiting. 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 PMHx migraines, Lyme disease, connective tissue disorder. Rx Doxycycline, Oxycodone. Pt reports that she usually has migraines once a month. I, Dr. Kerr, personally performed the services described in this documentation as scribed in my presence and it is both accurate and complete. - History Of Current Complaint Chief Complaint: EDHeadache Stated Complaint: MIGRAINE/NECK/BACK PAIN Time Seen by Provider: 01/31/18 20:02 Hx Obtained From: Patient Hx Last Menstrual Period: 12/30 Onset/Duration: Sudden Onset Currently Pain Is: Current Pain Scale(0-10)= - 7 Timing: Constant Character: Migraine Location of Headache: Frontal Aggravating Factor: Bright Lights Associated Signs And Symptoms: Neck Pain - Allergies/Home Medications Allergies/Adverse Reactions: Allergies Allergy/AdvReac Type Severity Reaction Status Date / Time clindamycin Allergy Rash Verified 01/31/18 19:13 metoclopramide [From Reglan] Allergy See Comment Verified 01/31/18 19:13 Penicillins Allergy Rash Verified 01/31/18 19:13 Sulfa (Sulfonamide Allergy Rash Verified 01/31/18 19:13 Antibiotics) sulfamethoxazole Allergy Rash Verified 01/31/18 19:13 [From Bactrim] trimethoprim [From Bactrim] Allergy Rash Verified 01/31/18 19:13 ciprofloxacin [From Cipro] AdvReac Joint Pain Verified 01/31/18 19:13 PMH/Surg Hx/FS Hx/Imm Hx Endocrine/Hematology History: Reports: Hx Thyroid Disease - HYPO Denies: Hx Anticoagulant Therapy, Hx Diabetes, Hx Systemic Lupus Erythematosus Cardiovascular History: Denies: Hx Congestive Heart Failure, Hx Deep Vein Thrombosis, Hx Hypertension , Hx Myocardial Infarction, Hx Pacemaker/ICD Respiratory History: Reports: Hx Asthma - USES INHALER, Hx Sleep Apnea Denies: Hx Chronic Obstructive Pulmonary Disease (COPD), Hx Lung Cancer GI History: Reports: Hx Gall Bladder Disease - cholecystectomy, Hx Gastroesophageal Reflux Disease - CONTROL WITH MEDS, Hx Irritable Bowel, Other GI Disorders - Celiac Denies: Hx Gastrointestinal Bleed, Hx Ulcer, Hx Urosepsis History: Denies: Hx Dialysis, Hx Kidney Stones, Hx Renal Disease Musculoskeletal History: Reports: Hx Arthritis, Other Musculoskeletal History - "neck problems" Denies: Hx Rheumatoid Arthritis, Hx Osteoporosis Sensory History: Reports: Hx Contacts or Glasses - GLASSES Denies: Hx Hearing Aid Opthamlomology History: Reports: Hx Contacts or Glasses - GLASSES Neurological History: Reports: Hx Migraine - 2 X PER MONTH, Other Neuro Impairments/Disorders - Lymes Disease Denies: Hx Dementia, Hx Seizures, Hx Transient Ischemic Attacks (TIA) Psychiatric History: Reports: Hx Anxiety - meds, Hx Depression - meds Denies: Hx Panic Disorder, Hx Schizophrenia, Hx Bipolar Disorder - Cancer History Hx Chemotherapy: No - Surgical History Surgery Procedure, Year, and Place: 1995 ABDOMINAL LAPAROSCOPY, [place]. 2004 LEFT ANKLE RECONSTRUCTIVE SURGERY, [facility]. 2006 RIGHT KNEE CARTLIAGE REPAIR, [place]. 05/2013 LAPAROSCOPIC CHOLECYSTECTOMY, [facility] [place]. 07/2013 RIGHT ANKLE SURGERY WITH ALLOGRAFT RECONSTRUCTION OF ANKLE LIGAMENT, [facility] [place]. RT THUMB - FUSED - 2016- PLATE & SCREWS Hx Anesthesia Reactions: No - Immunization History Date of Tetanus Vaccine: Unknown Infectious Disease History: No Infectious Disease History: Denies: Hx Clostridium Difficile, Hx Hepatitis, Hx Human Immunodeficiency Virus (HIV), Hx of Known/Suspected MRSA, Hx Shingles, Hx Tuberculosis, Hx Known/ Suspected VRE, Hx Known/Suspected VRSA, History Other Infectious Disease, Traveled Outside the in Last 30 Days - Family History Known Family History: Positive: None, Cardiac Disease, Hypertension, Diabetes, Other - breast CA - Social History Alcohol Use: Rare Alcohol Amount: 2 drinks per week Hx Substance Use: No Substance Use Type: Reports: None Substance Use Comment - Amount & Last Used: prn pain meds Hx Tobacco Use: No Smoking Status (MU): Never Smoked Tobacco Have You Smoked in the Last Year: No Review of Systems Negative: Vomiting Positive: Other - back pain, neck pain Positive: Headache All Other Systems Reviewed And Are Negative: Yes Physical Exam - Summary Physical Exam Summary: GENERAL: Patient is a well-developed and nourished femalevwho is lying comfortable in the stretcher. Patient is not in any acute respiratory distress. HEAD AND FACE: No signs of trauma. No ecchymosis, hematomas or skull depressions. No sinus tenderness. EYES: PERRLA, EOMI x 2, No injected conjunctiva, no nystagmus. Patient is sensitive to light. EARS: Hearing grossly intact. Ear canals and tympanic membranes are within normal limits. MOUTH: Oropharynx within normal limits. NECK: Supple, trachea is midline, no adenopathy, no JVD, no carotid bruit, no c- spine tenderness, neck with full ROM. CHEST: Symmetric, no tenderness at palpation LUNGS: Clear to auscultation bilaterally. No wheezing or crackles. CVS: Regular rate and rhythm, S1 and S2 present, no murmurs or gallops appreciated. ABDOMEN: Soft, non-tender. No signs of distention. No rebound no guarding, and no masses palpated. Bowel sounds are normal. EXTREMITIES: FROM in all major joints, no edema, no cyanosis or clubbing. NEURO: Alert and oriented x 3. No acute neurological deficits. Speech is normal and follows commands. SKIN: Dry and warm Triage Information Reviewed: Yes Vital Signs On Initial Exam: Initial Vitals Temp Pulse Resp BP Pulse Ox 98.1 F 70 16 110/70 99 01/31/18 19:05 01/31/18 19:05 01/31/18 19:05 01/31/18 19:05 01/31/18 19:05 Vital Signs Reviewed: Yes Diagnostics - Vital Signs Vital Signs Temp Pulse Resp BP Pulse Ox 01/31/18 19:05 98.1 F 70 16 110/70 99 - Laboratory Lab Statement: Any lab studies that have been ordered have been reviewed, and results considered in the medical decision making process. Re-Evaluation - Re-Evaluation First Eval Re-Evaluation Time: 22:53 Change: Improved Comment: Patient is feeling better and wants to go home Headache Course/Dx - Course Course Of Treatment: This patient is a 37 year old F presenting to [facility] with a chief complaint of migraine ALEXIS (behind eyes and on the left side of head) accompanied by upper back and neck pain since 01/28/18 at 08:00. The patient rates the pain 7/10 in severity. Patient reports photophobia. Patient denies vomiting. 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 PMHx migraines, Lyme disease, connective tissue disorder. Rx Doxycycline, Oxycodone. Pt reports that she usually has migraines once a month. In the ED course the patient was given IV fluids. Patient will be discharged. The patient is agreeable with this plan. - Diagnoses Provider Diagnoses: Headache Discharge - Sign-Out/Discharge Documenting (check all that apply): Patient Departure - discharge - Discharge Plan Condition: Stable Disposition: HOME Patient Education Materials: Acute Headache (ED) Referrals: Michelle Mark NP [Primary Care Provider] - Additional Instructions: RETURN TO THE EMERGENCY DEPARTMENT FOR CHANGING OR WORSENING SYMPTOMS. FOLLOW UP WITH PCP IN 1-2 DAYS. - Attestation Statements Document Initiated by Scribe: Yes Documenting Scribe: Presley Ashraf Provider For Whom Scribe is Documenting (Include Credential): Kelvin Kerr MD Scribe Attestation: Presley Whitney, scribed for Kelvin Kerr MD on 01/31/18 at 2300.
[2018-01-31] MEDS ORDERED: Ondansetron INJ* 2 MG/ML VIAL ONE (20:58)
[2018-01-31] MEDS ORDERED: Ondansetron INJ* 2 MG/ML VIAL IV ONE (21:20)
[2018-01-31 23:37] VITALS: BP 114/68
== END 2018-01-31 23:40 | disposition home or self-care (01) ==
LOC: ED 19:05
DX: R51 Headache (principal); M54.9 Dorsalgia, unspecified; M54.2 Cervicalgia; J45.909 Unspecified asthma, uncomplicated; K21.9 Gastro-esophageal reflux disease without esophagitis; L94.9 Localized connective tissue disorder, unspecified; Z86.19 Personal history of other infectious and parasitic diseases; Z86.69 Personal history of other diseases of the nervous system and sense organs; Z79.899 Other long term (current) drug therapy; Z88.3 Allergy status to other anti-infective agents; Z88.0 Allergy status to penicillin; Z88.8 Allergy status to other drugs, medicaments and biological substances; Z88.2 Allergy status to sulfonamides
CPT/HCPCS: 96361; 96374; 96375; 99283; J1200; J1885; J2405; J2765

== ENCOUNTER 2018-02-06 00:15 | Emergency (ER) | payer MEDICARE ==
[2018-02-06] MEDS ORDERED: diPHENhydraMINE PO* 50 MG PO ONE (02:13)
[2018-02-06] MEDS ORDERED: Ketorolac INJ* 30 MG/ML 1 ML VIAL IV PUSH ONE (02:14)
[2018-02-06] MEDS ORDERED: PROCHLORPERAZINE INJ 5 MG/ML 2 ML VIAL IV ONE (02:14)
[2018-02-06] MEDS ORDERED: Magnesium Sulfate 2 GM IV* 2 GM/50 ML BAG IVPB ONE (02:15)
[2018-02-06 02:37] LABS: ABS Basophils 0 10^3/ul (0-0.2); ABS Eosinophils 0.1 10^3/ul (0-0.6); ABS Lymphocytes 3.1 10^3/ul (1.0-4.8); ABS Monocytes 0.5 10^3/ul (0-0.8); ABS Neutrophils 3.1 10^3/ul (1.5-7.7); ABS Nucleated RBC 0 10^3/ul; Hematocrit 37 % (35-47); Hemoglobin 12.7 g/dl (12.0-16.0); Lymphocyte % 45.3 % (25-47); Mean Corpuscular HGB Conc 34 g/dl (31-36); Mean Corpuscular Hemoglobin 32 pg (27-31); Mean Corpuscular Volume 93 fL (80-97); Mean Platelet Volume 7.5 um3 (7.4-10.4); Nucleated Red Blood Cells % 0.1; Platelet Count 236 10^3/ul (150-450); Red Blood Count 3.99 10^6/ul (4.00-5.40); Red Cell Distribution Width 13 % (10.5-15); White Blood Count 6.8 10^3/ul (3.5-10.8)
--- NOTE | 2018-02-06 03:18 | ED ---
Headache - HPI Summary HPI Summary: 37 year old presents with headache for the past 10 days. She states she was seen here 5 days ago and had no relief with the medications. She states that she was seen by her primary on Monday and was started on sumatriptan again. She states that she has a history of migraines but hasn't had one in a while. She also has a history of neck issues. She denies any change in vision. She admits to photophobia. She admits to nausea or vomiting. She denies any fever. No recent illness. She states this is not the worst headache of her life. States that headache is mostly located on left side of her head. States is pulsatile in nature. No phonophobia. No neck stiffness. States she also gets some shooting pain down her left arm which is common when she gets her migraine. No chest pain or shortness of breath. Has history of renee-danlos. - History Of Current Complaint Chief Complaint: EDHeadache Stated Complaint: HEAD/NECK PAIN Time Seen by Provider: 02/06/18 02:04 Hx Last Menstrual Period: 12/30 - Allergies/Home Medications Allergies/Adverse Reactions: Allergies Allergy/AdvReac Type Severity Reaction Status Date / Time clindamycin Allergy Rash Verified 02/06/18 00:22 metoclopramide [From Reglan] Allergy See Comment Verified 02/06/18 00:22 Penicillins Allergy Rash Verified 02/06/18 00:22 Sulfa (Sulfonamide Allergy Rash Verified 02/06/18 00:22 Antibiotics) sulfamethoxazole Allergy Rash Verified 02/06/18 00:22 [From Bactrim] trimethoprim [From Bactrim] Allergy Rash Verified 02/06/18 00:22 ciprofloxacin [From Cipro] AdvReac Joint Pain Verified 02/06/18 00:22 PMH/Surg Hx/FS Hx/Imm Hx Endocrine/Hematology History: Reports: Hx Thyroid Disease - HYPO Denies: Hx Anticoagulant Therapy, Hx Diabetes, Hx Systemic Lupus Erythematosus Cardiovascular History: Denies: Hx Congestive Heart Failure, Hx Deep Vein Thrombosis, Hx Hypertension , Hx Myocardial Infarction, Hx Pacemaker/ICD Respiratory History: Reports: Hx Asthma - USES INHALER, Hx Sleep Apnea Denies: Hx Chronic Obstructive Pulmonary Disease (COPD), Hx Lung Cancer GI History: Reports: Hx Gall Bladder Disease - cholecystectomy, Hx Gastroesophageal Reflux Disease - CONTROL WITH MEDS, Hx Irritable Bowel, Other GI Disorders - Celiac Denies: Hx Gastrointestinal Bleed, Hx Ulcer, Hx Urosepsis History: Denies: Hx Dialysis, Hx Kidney Stones, Hx Renal Disease Musculoskeletal History: Reports: Hx Arthritis, Other Musculoskeletal History - "neck problems" Denies: Hx Rheumatoid Arthritis, Hx Osteoporosis Sensory History: Reports: Hx Contacts or Glasses - GLASSES Denies: Hx Hearing Aid Opthamlomology History: Reports: Hx Contacts or Glasses - GLASSES Neurological History: Reports: Hx Migraine - 2 X PER MONTH, Other Neuro Impairments/Disorders - Lymes Disease Denies: Hx Dementia, Hx Seizures, Hx Transient Ischemic Attacks (TIA) Psychiatric History: Reports: Hx Anxiety - meds, Hx Depression - meds Denies: Hx Panic Disorder, Hx Schizophrenia, Hx Bipolar Disorder - Cancer History Hx Chemotherapy: No - Surgical History Surgery Procedure, Year, and Place: 1995 ABDOMINAL LAPAROSCOPY, [place]. 2004 LEFT ANKLE RECONSTRUCTIVE SURGERY, [facility]. 2006 RIGHT KNEE CARTLIAGE REPAIR, [place]. 05/2013 LAPAROSCOPIC CHOLECYSTECTOMY, [facility] [place]. 07/2013 RIGHT ANKLE SURGERY WITH ALLOGRAFT RECONSTRUCTION OF ANKLE LIGAMENT, [facility] [place]. RT THUMB - FUSED - 2016- PLATE & SCREWS Hx Anesthesia Reactions: No - Immunization History Date of Tetanus Vaccine: Unknown Infectious Disease History: No Infectious Disease History: Denies: Hx Clostridium Difficile, Hx Hepatitis, Hx Human Immunodeficiency Virus (HIV), Hx of Known/Suspected MRSA, Hx Shingles, Hx Tuberculosis, Hx Known/ Suspected VRE, Hx Known/Suspected VRSA, History Other Infectious Disease, Traveled Outside the in Last 30 Days - Family History Known Family History: Positive: None, Cardiac Disease, Hypertension, Diabetes, Other - breast CA - Social History Alcohol Use: Rare Alcohol Amount: 2 drinks per week Hx Substance Use: No Substance Use Type: Reports: None Substance Use Comment - Amount & Last Used: prn pain meds Hx Tobacco Use: No Smoking Status (MU): Never Smoked Tobacco Have You Smoked in the Last Year: No Review of Systems Negative: Fever Negative: Chest Pain Negative: Shortness Of Breath Positive: Headache All Other Systems Reviewed And Are Negative: Yes Physical Exam Triage Information Reviewed: Yes Vital Signs On Initial Exam: Initial Vitals Temp Pulse Resp BP Pulse Ox 98.3 F 68 16 121/74 98 02/06/18 00:18 02/06/18 00:18 02/06/18 00:18 02/06/18 00:18 02/06/18 00:18 Vital Signs Reviewed: Yes Appearance: Positive: Well-Appearing Skin: Positive: Warm, Dry Head/Face: Positive: Normal Head/Face Inspection Eyes: Positive: Normal, Conjunctiva Clear ENT: Positive: Pharynx normal Respiratory/Lung Sounds: Positive: Clear to Auscultation, Breath Sounds Present Cardiovascular: Positive: Normal, RRR Musculoskeletal: Positive: Normal Neurological: Positive: Sensory/Motor Intact, Alert, Oriented to Person Place, Time, CN Intact II-III Psychiatric: Positive: Normal Diagnostics - Vital Signs Vital Signs Temp Pulse Resp BP Pulse Ox 02/06/18 00:18 98.3 F 68 16 121/74 98 - Laboratory Lab Results: Lab Results 02/06/18 02/06/18 Range/Units 02:27 02:27 WBC 6.8 (3.5-10.8) 10^3/ul RBC 3.99 L (4.00-5.40) 10^6/ul Hgb 12.7 (12.0-16.0) g/dl Hct 37 (35-47) % MCV 93 (80-97) fL MCH 32 H (27-31) pg MCHC 34 (31-36) g/dl RDW 13 (10.5-15) % Plt Count 236 (150-450) 10^3/ul MPV 7.5 (7.4-10.4) um3 Neut % (Auto) 45.3 (38-83) % Lymph % (Auto) 45.3 (25-47) % [place] % (Auto) 6.7 (0-7) % Eos % (Auto) 2.0 (0-6) % Baso % (Auto) 0.7 (0-2) % Absolute Neuts (auto) 3.1 (1.5-7.7) 10^3/ul Absolute Lymphs (auto) 3.1 (1.0-4.8) 10^3/ul Absolute Monos (auto) 0.5 (0-0.8) 10^3/ul Absolute Eos (auto) 0.1 (0-0.6) 10^3/ul Absolute Basos (auto) 0 (0-0.2) 10^3/ul Absolute Nucleated RBC 0 10^3/ul Nucleated RBC % 0.1 Magnesium 1.9 (1.9-2.7) mg/dL C-Reactive Protein < 1.00 (<8.01) mg/L Beta HCG, Quant < 0.60 mIU/mL Result Diagrams: 02/06/18 02:27 Lab Statement: Any lab studies that have been ordered have been reviewed, and results considered in the medical decision making process. Re-Evaluation - Re-Evaluation First Eval Re-Evaluation Time: 02:55 Change: Improved Comment: pain not completely gone Second Eval Re-Evaluation Time: 03:51 Change: Improved Comment: feels well enough to go home after steriod Headache Course/Dx - Course Course Of Treatment: 37 year old presents with headache for the past 10 days. She states she was seen here 5 days ago and had no relief with the medications. She states that she was seen by her primary on Monday and was started on sumatriptan again. She states that she has a history of migraines but hasn't had one in a while. She also has a history of neck issues. She denies any change in vision. She admits to photophobia. She admits to nausea or vomiting. She denies any fever. No recent illness. She states this is not the worst headache of her life. States that headache is mostly located on left side of her head. States is pulsatile in nature. No phonophobia. No neck stiffness. States she also gets some shooting pain down her left arm which is common when she gets her migraine. No chest pain or shortness of breath. on exam normal neuro exam. gave benadry, compazine, and mg and headache is better. gave decadon and feeling well enought to go home. patient has medication at home if symptoms return. patient understand and agrees with plan. - Diagnoses Differential Diagnosis/HQI/PQRI: Migraine, Tension Headache, Viral Syndrome Provider Diagnoses: Headache Discharge - Sign-Out/Discharge Documenting (check all that apply): Patient Departure - Discharge Plan Condition: Good Disposition: HOME Patient Education Materials: Migraine Headache (ED) Referrals: Michelle Mark NP [Primary Care Provider] - Ajith Garcia MD [Medical Doctor] - Additional Instructions: use migraine medication as previously prescribed Take Tylenol or ibuprofen for pain every 6 hours Follow up with primary within 5 days follow up again with neurology if migraine keeps reoccurring Return to ED if develop any new or worsening symptoms - Billing Disposition and Condition Condition: GOOD Disposition: Home
[2018-02-06] MEDS ORDERED: Dexamethasone IV* 4 MG/ML 1 ML (4 MG) IV SLOW PU ONE (03:21)
[2018-02-06 04:06] VITALS: BP 132/59
== END 2018-02-06 04:05 | disposition home or self-care (01) ==
LOC: ED 00:15
DX: R51 Headache (principal); Z88.0 Allergy status to penicillin
CPT/HCPCS: 36415; 83735; 84702; 85025; 86140; 96365; 96375; 99282; A9270-GY; J0780; J1100; J1885; J3475

== ENCOUNTER 2018-02-09 08:49 | Emergency (ER) | payer MEDICARE ==
[2018-02-09 09:15] VITALS: BP 109/68
--- NOTE | 2018-02-09 10:03 | UC ---
Back Pain HPI - HPI Summary HPI Summary: 37 yo female presents with low back pain. She tells me that she has a history of a connective tissue disorder and has a chronic back and joint pain. Over the last 2 weeks has had low thoracic/high lumbar spinal muscle discomfort. She does not recall a specific injury, but has been very active over the last few weeks. She has pain medications and stretching routines that she does at home, but these have not been helping as they do in the past. She denies fever, chills , SOB, chest pain, abdominal pain, n/v, dysuria, numbness, tingling, saddle anesthesia, or loss of bowel/bladder control. - History of Current Complaint Chief Complaint: UCBackPain Stated Complaint: BACK PAIN Time Seen by Provider: 02/09/18 10:03 Hx Obtained From: Patient Hx Last Menstrual Period: 01/25/18 Onset/Duration: Gradual Onset Severity Initially: Moderate Severity Currently: Moderate Pain Intensity: 5 Pain Scale Used: 0-10 Numeric - Allergies/Home Medications Allergies/Adverse Reactions: Allergies Allergy/AdvReac Type Severity Reaction Status Date / Time clindamycin Allergy Rash Verified 02/09/18 09:05 metoclopramide [From Reglan] Allergy See Comment Verified 02/09/18 09:05 Penicillins Allergy Rash Verified 02/09/18 09:05 Sulfa (Sulfonamide Allergy Rash Verified 02/09/18 09:05 Antibiotics) sulfamethoxazole Allergy Rash Verified 02/09/18 09:05 [From Bactrim] trimethoprim [From Bactrim] Allergy Rash Verified 02/09/18 09:05 ciprofloxacin [From Cipro] AdvReac Joint Pain Verified 02/09/18 09:05 Home Medications: Home Medications Pregabalin CAP(*) [Lyrica CAP(*)] 75 mg PO DAILY 02/09/18 [History Confirmed 04/17] PMH/Surg Hx/FS Hx/Imm Hx - Additional Past Medical History Additional PMH: "connective tissue disorder" Chronic pain Previously Healthy: Yes Endocrine History: Hypothyroidism Psychological History: Anxiety, Depression Other History Of: Negative For: HIV, Hepatitis B, Hepatitis C, Anticoagulant Therapy - Surgical History Surgical History: Yes Surgery Procedure, Year, and Place: 1995 ABDOMINAL LAPAROSCOPY, [place]. 2004 LEFT ANKLE RECONSTRUCTIVE SURGERY, [facility], [place]. 2006 RIGHT KNEE CARTLIAGE REPAIR, [place]. 05/2013 LAPAROSCOPIC CHOLECYSTECTOMY, [facility]. 07/2013 RIGHT ANKLE SURGERY WITH ALLOGRAFT RECONSTRUCTION OF ANKLE LIGAMENT, [facility]. RT THUMB - FUSED - 2016- PLATE & SCREWS - Family History Known Family History: Positive: Cardiac Disease, Hypertension, Diabetes, Other - breast CA - Social History Lives: With Family Alcohol Use: Rare Alcohol Amount: 2 drinks per week Substance Use Type: None Substance Use Comment - Amount & Last Used: prn pain meds Smoking Status (MU): Never Smoked Tobacco Have You Smoked in the Last Year: No - Immunization History Most Recent Influenza Vaccination: never Most Recent Tetanus Shot: unknown Most Recent Pneumonia Vaccination: 2004 Review of Systems Constitutional: Negative Skin: Negative Respiratory: Negative Cardiovascular: Negative Gastrointestinal: Negative Genitourinary: Negative Neurovascular: Negative Musculoskeletal: Other: - LBP Neurological: Negative Psychological: Negative All Other Systems Reviewed And Are Negative: Yes Physical Exam - Summary Physical Exam Summary: GENERAL: NAD. WDWN. No pain distress. SKIN: No rashes, sores, lesions, or open wounds. NECK: Supple. FROM. Nontender. No lymphadenopathy. CHEST: CTAB. No r/r/w. No accessory muscle use. Breathing comfortably and in no distress. CV: RRR. Without m/r/g. Pulses intact. Cap refill <2seconds MSK: TTP over ~L1 paraspinal muscles. Pain with flexion and extension of spine. Positive SLR on RIGHT for low back pain without radiation. Strength 5/5 B/L LEs including dorsiflexion and plantar flexion. FROM B/L LEs. No edema. NEURO: Alert. Sensations intact B/L LEs L3-S1. PSYCH: Age appropriate behavior. Triage Information Reviewed: Yes Vital Signs: Initial Vital Signs Temp 98.1 F 02/09/18 09:08 Pulse 67 02/09/18 09:08 Resp 16 02/09/18 09:08 BP 109/68 02/09/18 09:08 Pulse Ox 99 02/09/18 09:08 Vital Signs Reviewed: Yes Back Pain Course/Dx - Course Course Of Treatment: XR: IMPRESSION: UNREMARKABLE RADIOGRAPHS OF THE THORACOLUMBAR SPINE. Suspect muscle strain. I discussed the results with the pt and offerred pain medication, PT, or referral to a specialist - pt declined all of the above and wishes to continue her at home pain regimen. - Differential Dx/Diagnosis Provider Diagnoses: Low back pain Discharge - Sign-Out/Discharge Documenting (check all that apply): Patient Departure All imaging exams completed and their final reports reviewed: Yes - Discharge Plan Condition: Stable Disposition: HOME Patient Education Materials: Muscle Strain (DC) Referrals: Michelle Mark NP [Primary Care Provider] - Additional Instructions: If you develop a fever, shortness of breath, chest pain, new or worsening symptoms - please call your PCP or go to the ED. 1) Please take your at home pain medication as needed for your pain and follow up if needed - Billing Disposition and Condition Condition: STABLE Disposition: Home
--- NOTE | 2018-02-09 10:31 | RAD ---
HISTORY: Back pain COMPARISONS: Chest x-ray dated January 23, 2017 VIEWS: 2, Frontal and lateral views of the thoracolumbar spine. FINDINGS: ALIGNMENT: The alignment is normal. VERTEBRAL BODIES: The vertebral body heights are normal. The interpedicular distances are normal. JOINTS: Unremarkable. INTERVERTEBRAL DISCS: The intervertebral disc heights are normal. SOFT TISSUE: Unremarkable OTHER: The visualized lungs are clear. IMPRESSION: UNREMARKABLE RADIOGRAPHS OF THE THORACOLUMBAR SPINE
== END 2018-02-09 10:40 | disposition home or self-care (01) ==
LOC: UCEAST 08:49
DX: M54.5 Low back pain (principal); Z88.1 Allergy status to other antibiotic agents; Z88.0 Allergy status to penicillin; Z88.2 Allergy status to sulfonamides; Z88.8 Allergy status to other drugs, medicaments and biological substances
CPT/HCPCS: 72080; 99211; G0463

== ENCOUNTER 2018-10-01 09:24 | Day surgery (SDC) | payer MEDICARE ==
[~2018-10-01 09:24] MED LIST changes: -Buffered Lidocaine 1% SYR 3ML* 3 ML/SYR SYRINGE INTRADERM ONE; -Buffered Lidocaine 1% SYR 3ML* 3 ML/SYR SYRINGE ONE; +Buffered Lidocaine 1% SYRIN* 1 ML/SYRINGE INTRADERM ONE; -Bupivacaine 0.5% SDV PF* 30 ML VIAL ONE; -HYDROcodone/ACETAMIN 5-325 MG* 1 TAB ONE; +Lactated Ringers 1000 ML Bag* 1,000 ML IV SCH; -Lidocaine 1% INJ* 10 MG/ML 30 ML SDV ONE; -Metoclopramide IV* 5 MG/ML 2 ML VIAL IV PRN; -Metoclopramide IV* 5 MG/ML 2 ML VIAL ONE; -Midazolam* 1 MG/ML 2 ML VIAL (2 MG) ONE; -Ondansetron INJ* 2 MG/ML VIAL ONE; -Propofol* 10 MG/ML 20 ML BTL IV PUSH ONE; -Scopolamine 1.5 mg* PATCH ONE; -Scopolamine 1.5 mg* PATCH TRANSDERM PRN; +Vancomycin(*) 1,250 MG IV x ONCE IVPB ONE; -ceFAZolin 2 GM PREMIX (*) 2 GM/50 ML BAG IVPB ONE; -fentaNYL* 50 MCG/ML 2 ML VIAL (100 MCG VIAL) ONE
[2018-10-01] MEDS ORDERED: Midazolam* 1 MG/ML 5 ML VIAL (5 MG) ONE (12:08)
[2018-10-01] MEDS ORDERED: fentaNYL* 50 MCG/ML 2 ML VIAL (100 MCG VIAL) ONE (12:08)
[2018-10-01] MEDS ORDERED: Scopolamine 1.5 mg* PATCH ONE (13:28)
[2018-10-01] MEDS ORDERED: Bupivacaine 0.25% SDV PF* 10 ML VIAL INJ ONE (13:58)
[2018-10-01] MEDS ORDERED: Scopolamine 1.5 mg* PATCH TRANSDERM SCH (14:00)
[2018-10-01] MEDS ORDERED: DiMENhydriNATE IV* 50 MG/ML VIAL ONE ×2 (14:01→15:00)
[2018-10-01] MEDS ORDERED: Propofol* 10 MG/ML 20 ML BTL ONE (14:01)
[2018-10-01] MEDS ORDERED: Dexamethasone IV* 4 MG/ML 1 ML (4 MG) ONE (14:01)
[2018-10-01] MEDS ORDERED: Lidocaine 2% PF * 5 ML VIAL ONE (14:01)
[2018-10-01] MEDS ORDERED: Ketorolac INJ* 30 MG/ML 1 ML VIAL ONE (14:01)
[2018-10-01] MEDS ORDERED: Ondansetron INJ* 2 MG/ML VIAL ONE (14:01)
[2018-10-01] MEDS ORDERED: HYDROmorphone INJ1* 1 MG/ML SYRINGE IV PRN (14:36)
[2018-10-01] MEDS ORDERED: Naloxone* 0.4 MG/ML 1 ML VIAL IV PRN (14:36)
[2018-10-01] MEDS ORDERED: DiMENhydriNATE IV* 50 MG/ML VIAL IV PUSH PRN (14:36)
[2018-10-01] MEDS ORDERED: oxyCODONE/Acetamin 5/325 MG* TAB ONE (15:18)
[2018-10-01] MEDS: oxyCODONE/Acetamin 5/325 MG* TAB PO PRN ×2 (15:24→16:04)
[2018-10-01 16:25] VITALS: BP 125/80
--- NOTE | 2018-10-01 20:45 | OP ---
DATE OF OPERATION: 10/01/18 - [facility] DATE OF : 78 SURGEON: Keith Snyder MD BUSINESS DEAN: BRANT Odonnell. An bookkeeper assistant was needed for the procedure to aid in positioning of the arm and holding the finger during instrumentation. ANESTHESIOLOGIST: Dr. Person. ANESTHESIA: General. 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 OPERATIVE PROCEDURE: Right index finger distal interphalangeal joint arthrodesis with Arthrex headless compression screw and autogenous local bone grafting. 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 I have done a basal joint fusion on her before. She has severe instability of the DIP joint. It makes very difficult for her to type or use the fingertip for just about anything. I did recommend fusion as an option to give stability. She very much wants to proceed. She understands there are risks and benefits associated with it. ESTIMATED BLOOD LOSS: 2 mL. COMPLICATIONS: None. FINDINGS: See above and below. DESCRIPTION OF PROCEDURE: Suzette was seen in the preoperative holding area. The correct site, side, and procedure were identified. We came back to the operating room where the arm was prepped and draped in the usual fashion and time-out was performed. A finger tourniquet was placed and left on during the procedure. I performed a digital block with 0.25% plain Marcaine. I then made an H-shaped incision over the dorsum of the DIP joint. Dissection was carried down to the paratenon. The extensor tendon was incised transversely. The collateral ligaments were released. The cartilage was removed and the subchondral bone was removed until I had nice cancellous bone. The 2 edges of the bone were apposed. My bookkeeper assistant then helped me to hold the hand as I went ahead and placed a guidewire for the Arthrex micro headless compression screw in retrograde fashion starting at the tip of the finger down and traversing the DIP joint with the joint in about 20 degrees of flexion. Once I had the guidewire in the right place, I went ahead and made a small incision around the guidewire and then drilled and then placed a 26 mm Arthrex micro headless compression screw. This provided excellent compression. The joint was in about 20 degrees of flexion. I went ahead and packed the local autogenous bone graft. The terminal extensor tendon was repaired with 4-0 PDS suture. Skin was closed with 4-0 nylon suture. Dressing was applied and a finger was applied. The finger tourniquet was released and the fingertip pinked up immediately. She was taken to the recovery room in stable condition. [id number]/[facility] #: [id number] NOHEMI
== END 2018-10-01 16:35 | disposition home or self-care (01) ==
LOC: OR 09:24
PROVIDERS: ATTEND Orthopaedic Surgery Hand Surgery
DX: M25.341 Other instability, right hand (principal); Q79.6 Ehlers-Danlos syndromes; Z88.0 Allergy status to penicillin; Z88.8 Allergy status to other drugs, medicaments and biological substances; G89.29 Other chronic pain; G47.33 Obstructive sleep apnea (adult) (pediatric); E03.9 Hypothyroidism, unspecified
CPT/HCPCS: 76000; 81025; A9270-GY; C1713; J1100; J1240; J1885; J2250; J2405; J2704; J3010; J3370; J3490

== ENCOUNTER 2019-01-07 15:05 | Emergency (ER) | payer MEDICARE, MEDICAID ==
[2019-01-07 15:30] LABS: Urine Appearance Clear; Urine Bacteria Absent (Absent); Urine Bilirubin Negative (Negative); Urine Blood 1+ (Negative); Urine Color Straw; Urine Glucose Negative (Negative); Urine Ketones Negative (Negative); Urine Nitrite Negative (Negative); Urine Protein Negative (Negative); Urine Red Blood Cell Trace(0-2/hpf) (Absent); Urine Specific Gravity 1.009 (1.010-1.030); Urine Squamous Epithelial Cell Present (Absent); Urine Urobilinogen Negative (Negative); Urine White Blood Cell Absent (Absent)
[2019-01-07] MEDS ORDERED: Diazepam TAB(*) 5 MG PO ONE (16:00)
[2019-01-07 16:29] LABS: ABS Basophils 0.1 10^3/ul (0-0.2); ABS Eosinophils 0.1 10^3/ul (0-0.6); ABS Lymphocytes 2.8 10^3/ul (1.0-4.8); ABS Monocytes 0.5 10^3/ul (0-0.8); ABS Neutrophils 4.2 10^3/ul (1.5-7.7); Eosinophil % 1.6 %; Hematocrit 36 % (35-47); Hemoglobin 12.2 g/dL (12.0-16.0); Lymphocyte % 37.2 %; Mean Corpuscular HGB Conc 34 g/dL (31-36); Mean Corpuscular Hemoglobin 32 pg (27-31); Mean Corpuscular Volume 95 fL (80-97); Mean Platelet Volume 6.7 fL (7.4-10.4); Platelet Count 347 10^3/uL (150-450); Red Blood Count 3.79 10^6 /uL (3.70-4.87); Red Cell Distribution Width 14 % (10-15); White Blood Count 7.6 10^3/uL (3.5-10.8)
[2019-01-07 16:44] LABS: HCG Pregnancy < 0.60 mIU/mL
[2019-01-07 17:01] LABS: ALT 16 U/L (7-52); AST 22 U/L (13-39); Albumin 4.6 g/dL (3.2-5.2); Albumin/Globulin Ratio 1.8 (1-3); Alkaline Phosphatase 43 U/L (34-104); Anion Gap 8 mmol/L (2-11); Blood Urea Nitrogen 13 mg/dL (6-24); C Reactive Protein 1.26 mg/L (<8.01); CO2 Carbon Dioxide 26 mmol/L (22-32); Chloride 104 mmol/L (101-111); EGFR African American 74.7 (>60); EGFR Non-African American 61.7 (>60); Globulin 2.6 g/dL (2-4); Glucose 92 mg/dL (70-100); Potassium 3.6 mmol/L (3.5-5.0); Sodium 138 mmol/L (135-145); Total Protein 7.2 g/dL (6.4-8.9)
[2019-01-07] MEDS ORDERED: NS 0.9% 1000 ML** 1,000 ML IV ONE (17:44)
[2019-01-07] MEDS ORDERED: Morphine 4 MG/ML VIAL (1 ml) 4 MG/ML VIAL IV ONE (17:45)
[2019-01-07] MEDS ORDERED: Ondansetron INJ* 2 MG/ML VIAL IV ONE (17:45)
[2019-01-07] MEDS ORDERED: Iohexol 300* (CONTRAST) 10 ML SDV IV ONE (18:33)
[2019-01-07] MEDS ORDERED: HYDROmorphone INJ1* 1 MG/ML SYRINGE IV ONE (19:13)
[2019-01-07] MEDS ORDERED: Ketorolac INJ* 30 MG/ML 1 ML VIAL IM ONE (21:48)
--- NOTE | 2019-01-07 21:50 | ED ---
Abdominal Pain/Female - HPI Summary HPI Summary: Patient complains of right-sided lower back pain starting at midnight, increased urinary frequency times weeks, right-sided lower abdominal cramping radiating to right leg. Associated nausea. History of sciatica. Denies vaginal symptoms, burning with urination, fever, cough, sore throat, CP, SOB, V/ D. medical history is nonvascular Amaya-Danlos. Abdominal surgical history is cholecystectomy. - History of Current Complaint Chief Complaint: EDUrogenitalProblems Stated Complaint: FLANK PAIN Time Seen by Provider: 01/07/19 15:50 Hx Obtained From: Patient Hx Last Menstrual Period: 01/25/18 Onset/Duration: Sudden Onset, Lasting Hours Timing: Constant Severity Initially: Moderate Severity Currently: Moderate Pain Intensity: 7 Pain Scale Used: 0-10 Numeric Location: Discrete At: RLQ, Flank Radiates: Yes Radiates to: Back Character: Cramping Aggravating Factor(s): Nothing Alleviating Factor(s): Nothing Associated Signs and Symptoms: Positive: Urinary Symptoms, Nausea Allergies/Adverse Reactions: Allergies Allergy/AdvReac Type Severity Reaction Status Date / Time clindamycin Allergy Rash Verified 12/24/18 09:51 metoclopramide [From Reglan] Allergy See Comment Verified 12/24/18 09:51 Penicillins Allergy Rash Verified 12/24/18 09:51 Sulfa (Sulfonamide Allergy Rash Verified 12/24/18 09:51 Antibiotics) sulfamethoxazole Allergy Rash Verified 12/24/18 09:51 [From Bactrim] trimethoprim [From Bactrim] Allergy Rash Verified 12/24/18 09:51 ciprofloxacin [From Cipro] AdvReac Joint Pain Verified 12/24/18 09:51 Home Medications: Home Medications Ibuprofen TAB* [Motrin TAB* 600 MG] 600 mg PO Q4HR PRN 01/07/19 [History Confirmed 01/07/19] Tramadol ER(NF) [Ultram ER(NF)] 200 mg PO QAM 01/07/19 [History Confirmed ] oxyCODONE TAB* [Roxycodone TAB 5 mg*] 5 mg PO Q8H PRN 01/07/19 [History Confirmed 01/07/19] tiZANidine TAB* [Zanaflex TAB*] 4 mg PO TID PRN 01/07/19 [History Confirmed 01/17] PMH/Surg Hx/FS Hx/Imm Hx Endocrine/Hematology History: Reports: Hx Thyroid Disease - HYPO Denies: Hx Anticoagulant Therapy, Hx Diabetes, Hx Systemic Lupus Erythematosus Cardiovascular History: Denies: Hx Congestive Heart Failure, Hx Deep Vein Thrombosis, Hx Hypertension , Hx Myocardial Infarction, Hx Pacemaker/ICD Respiratory History: Reports: Hx Asthma - USES INHALER, Hx Sleep Apnea Denies: Hx Chronic Obstructive Pulmonary Disease (COPD), Hx Lung Cancer, Other Respiratory Problems/Disorders GI History: Reports: Hx Gall Bladder Disease - cholecystectomy, Hx Gastroesophageal Reflux Disease - CONTROL WITH MEDS, Hx Irritable Bowel, Other GI Disorders - Celiac Denies: Hx Gastrointestinal Bleed, Hx Ulcer, Hx Urosepsis History: Denies: Hx Dialysis, Hx Kidney Stones, Hx Renal Disease, Other Problems/ Disorders Musculoskeletal History: Reports: Hx Arthritis, Other Musculoskeletal History - "neck problems" Denies: Hx Rheumatoid Arthritis, Hx Osteoporosis Sensory History: Reports: Hx Contacts or Glasses - GLASSES Denies: Hx Hearing Aid Opthamlomology History: Reports: Hx Contacts or Glasses - GLASSES Neurological History: Reports: Hx Migraine - 2 X PER MONTH, Other Neuro Impairments/Disorders - Lymes Disease Denies: Hx Dementia, Hx Seizures, Hx Transient Ischemic Attacks (TIA) Psychiatric History: Reports: Hx Anxiety - meds, Hx Depression - meds Denies: Hx Panic Disorder, Hx Schizophrenia, Hx Bipolar Disorder - Cancer History Hx Chemotherapy: No Hx Radiation Therapy: No - Surgical History Surgery Procedure, Year, and Place: 1995 ABDOMINAL LAPAROSCOPY, [place]. 2004 LEFT ANKLE RECONSTRUCTIVE SURGERY, [facility]. 2006 RIGHT KNEE CARTLIAGE REPAIR, [place]. 05/2013 LAPAROSCOPIC CHOLECYSTECTOMY, [facility] [place]. 07/2013 RIGHT ANKLE SURGERY WITH ALLOGRAFT RECONSTRUCTION OF ANKLE LIGAMENT, [facility] [place]. RT THUMB - FUSED - 2016- PLATE & SCREWS. MIDDLE FINGER FUSED WITH SCREW 10/01/18-OK TO SCAN PER DR YOSEF Pierson Anesthesia Reactions: No - Immunization History Date of Tetanus Vaccine: Unknown Infectious Disease History: No Infectious Disease History: Denies: Hx Clostridium Difficile, Hx Hepatitis, Hx Human Immunodeficiency Virus (HIV), Hx of Known/Suspected MRSA, Hx Shingles, Hx Tuberculosis, Hx Known/ Suspected VRE, Hx Known/Suspected VRSA, History Other Infectious Disease, Traveled Outside the [place] in Last 30 Days - Family History Known Family History: Positive: None, Cardiac Disease, Hypertension, Diabetes, Other - breast CA - Social History Alcohol Use: Rare Alcohol Amount: 1 DRINK MONTHLY Hx Substance Use: No Substance Use Type: Reports: Prescribed Substance Use Comment - Amount & Last Used: prn pain meds Hx Tobacco Use: No Smoking Status (MU): Never Smoked Tobacco Have You Smoked in the Last Year: No Review of Systems Constitutional: Negative Eyes: Negative ENT: Negative Cardiovascular: Negative Respiratory: Negative Positive: Abdominal Pain, Nausea Positive: frequency Musculoskeletal: Negative Skin: Negative Neurological: Negative Psychological: Normal All Other Systems Reviewed And Are Negative: Yes Physical Exam - Summary Physical Exam Summary: Tenderness right lower quadrant. Abdominal exam otherwise unremarkable. Triage Information Reviewed: Yes Vital Signs On Initial Exam: Initial Vitals Temp Pulse Resp BP Pulse Ox 98.2 F 77 18 156/86 100 01/07/19 15:08 01/07/19 15:08 01/07/19 15:08 01/07/19 15:08 01/07/19 15:08 Vital Signs Reviewed: Yes Appearance: Positive: Well-Appearing Skin: Positive: Warm Head/Face: Positive: Normal Head/Face Inspection Eyes: Positive: Normal Neck: Positive: Supple Respiratory/Lung Sounds: Positive: Clear to Auscultation Cardiovascular: Positive: Normal Abdomen Description: Positive: Other: Musculoskeletal: Positive: Normal Neurological: Positive: Normal Psychiatric: Positive: Normal AVPU Assessment: Alert - Mears Coma Scale Best Eye Response: 4 - Spontaneous Best Motor Response: 6 - Obeys Commands Best Verbal Response: 5 - Oriented Coma Scale Total: 15 Diagnostics - Vital Signs Vital Signs Temp Pulse Resp BP Pulse Ox 01/07/19 19:35 16 01/07/19 19:02 71 98 01/07/19 19:01 70 129/78 100 01/07/19 18:11 16 01/07/19 16:16 20 01/07/19 16:05 97.9 F 85 22 150/92 97 01/07/19 15:08 98.2 F 77 18 156/86 100 - Laboratory Lab Results: Lab Results 01/07/19 01/07/19 01/07/19 Range/Units 15:14 16:03 16:03 WBC 7.6 (3.5-10.8) 10^3/uL RBC 3.79 (3.70-4.87) 10^6 /uL Hgb 12.2 (12.0-16.0) g/dL Hct 36 (35-47) % MCV 95 (80-97) fL MCH 32 H (27-31) pg MCHC 34 (31-36) g/dL RDW 14 (10-15) % Plt Count 347 (150-450) 10^3/uL MPV 6.7 L (7.4-10.4) fL Neut % (Auto) 54.4 % Lymph % (Auto) 37.2 % [place] % (Auto) 6.0 % Eos % (Auto) 1.6 % Baso % (Auto) 0.8 % Absolute Neuts (auto) 4.2 (1.5-7.7) 10^3/ul Absolute Lymphs (auto) 2.8 (1.0-4.8) 10^3/ul Absolute Monos (auto) 0.5 (0-0.8) 10^3/ul Absolute Eos (auto) 0.1 (0-0.6) 10^3/ul Absolute Basos (auto) 0.1 (0-0.2) 10^3/ul Absolute Nucleated RBC 0.0 10^3/ul Nucleated RBC % 0.0 Sodium 138 (135-145) mmol/L Potassium 3.6 (3.5-5.0) mmol/L Chloride 104 (101-111) mmol/L Carbon Dioxide 26 (22-32) mmol/L Anion Gap 8 (2-11) mmol/L BUN 13 (6-24) mg/dL Creatinine 1.00 H (0.51-0.95) mg/dL Est GFR ( Amer) 74.7 (>60) Est GFR (Non-Af Amer) 61.7 (>60) BUN/Creatinine Ratio 13.0 (8-20) Glucose 92 (70-100) mg/dL Calcium 9.0 (8.6-10.3) mg/dL Total Bilirubin 0.30 (0.2-1.0) mg/dL AST 22 (13-39) U/L ALT 16 (7-52) U/L Alkaline Phosphatase 43 (34-104) U/L C-Reactive Protein 1.26 (<8.01) mg/L Total Protein 7.2 (6.4-8.9) g/dL Albumin 4.6 (3.2-5.2) g/dL Globulin 2.6 (2-4) g/dL Albumin/Globulin Ratio 1.8 (1-3) Beta HCG, Quant < 0.60 mIU/mL Urine Color Straw Urine Appearance Clear Urine pH 6.0 (5-9) Ur Specific [place] 1.009 L (1.010-1.030) Urine Protein Negative (Negative) Urine Ketones Negative (Negative) Urine Blood 1+ A (Negative) Urine Nitrate Negative (Negative) Urine Bilirubin Negative (Negative) Urine Urobilinogen Negative (Negative) Ur Leukocyte Esterase Negative (Negative) Urine WBC (Auto) Absent (Absent) Urine RBC (Auto) Trace(0-2/hpf) (Absent) Ur Squamous Epith Cells Present A (Absent) Urine Bacteria Absent (Absent) Urine Glucose Negative (Negative) Result Diagrams: 01/07/19 16:03 01/07/19 16:03 Lab Statement: Any lab studies that have been ordered have been reviewed, and results considered in the medical decision making process. Abdominal Pain Fem Course/Dx - Course Course Of Treatment: Patient complains of right-sided lower back pain starting at midnight, increased urinary frequency times weeks, right-sided lower abdominal cramping radiating to right leg. Associated nausea. History of sciatica. Denies vaginal symptoms, burning with urination, fever, cough, sore throat, CP, SOB, V/D. medical history is nonvascular Amaya-Danlos. Abdominal surgical history is cholecystectomy. Vital signs within normal limits. Labs unremarkable.CT abdomen and pelvis negative. Transvaginal ultrasound positive for right ovarian cyst. - Diagnoses Provider Diagnoses: Right ovarian cyst Discharge ED - Sign-Out/Discharge Documenting (check all that apply): Patient Departure Patient Received Moderate/Deep Sedation with Procedure: No - Discharge Plan Condition: Stable Disposition: HOME Patient Education Materials: Ovarian Cyst (ED) Referrals: Michelle Mark NP [Primary Care Provider] - Juanjo Dove JR, DO [Doctor of Osteopathy] - Additional Instructions: In addition to your usual prescription pain medication alternate ibuprofen 600 mg with Tylenol 650 mg every 3 hours as needed for pain. Follow-up with your OB /RECORDINGS LIBRARIAN or with [employer] [employer] Dr. Dove if you do not have one for further evaluation of ovarian cyst. Return to the ED for any worsening symptoms. - Billing Disposition and Condition Condition: STABLE Disposition: Home
[2019-01-07 22:29] VITALS: BP 123/71
== END 2019-01-07 22:28 | disposition home or self-care (01) ==
LOC: ED 15:05
DX: N83.201 Unspecified ovarian cyst, right side (principal); Q79.6 Ehlers-Danlos syndromes; E03.9 Hypothyroidism, unspecified; K21.9 Gastro-esophageal reflux disease without esophagitis; F41.9 Anxiety disorder, unspecified; F32.9 Major depressive disorder, single episode, unspecified; Z79.899 Other long term (current) drug therapy; J45.909 Unspecified asthma, uncomplicated
CPT/HCPCS: 36415; 74177; 76830; 80053; 81003; 81015; 84702; 85025; 86140; 96361; 96372; 96374; 96375; 99282; A9270-GY; J1170; J1885; J2270; J2405; Q9967